=== PATIENT | female | born 1970 | race Caucasian/White ===

== ENCOUNTER 2021-07-24 13:59 | Outpatient (RCR) | payer MEDICAID, SELFPAY ==
--- NOTE | 2021-07-24 15:34 | HMH.SLVOIC ---
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 Recommendations Pt will be seen # times/week 2 for # weeks 8 Plan Anticipate reaching STG in # weeks 6 Anticipate reaching LTG in # weeks 8 Pt/Guardian verbally ack understanding Yes: Son verbalized of dx/prognosis/goals understanding G -code Required No Short Term Goals Sustain phonation of 'ah' at comf. pitch 5 8/10 trials # secs Miscellaneous Will use a communication board for functional language use with 50% accurac [employer] Goals Improve overall quality to increase/ Yes improve communication with family/ friends. 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 Oral-Motor Structure/Function Structure/Function Yes: Buccal Labial Lingual Mandibular Velar Facial Symmetry Symmetrical Dentition Edentulous Oral Agility: Diadochokinetic Rates P 2 T 2 K 2 PTK 1 Speech Intelligibility Phoneme Severe Word Severe Sentence Severe Conversation Severe Other Notes Comment Ms. Slade, a 51 year old female, was referred for speech therapy for dysarthria and dysphagia. Ms. Slade did exhibit severe dysarthric patterns that impact her
== END 2021-07-24 14:00 | disposition home or self-care (01) ==
LOC: ST 13:59
DX: G10 Huntington's disease (principal); R13.10 Dysphagia, unspecified
CPT/HCPCS: 92524

== ENCOUNTER → 2021-08-02 13:22 | Outpatient (CLI) | payer MEDICAID, SELFPAY ==
--- NOTE | 2021-08-02 13:25 | FL_ITS ---
PROCEDURE: FL BARIUM SWALLOW MODIFIED CLINICAL INDICATION: DYSPHAGIA COMPARISON: No exams were available for comparison TECHNIQUE: Patient administered varying consistencies of barium contrast, while viewed in lateral position under real-time fluoroscopy with cine recording. FLUOROSCOPY TIME:3.3 minutes The study was performed in conjunction with speech pathologist. Please see that report & recommendations. FINDINGS: Patient was given varying consistencies of barium. Difficulty with mastication and initiation of swallowing reflex. Premature spillage was noted into the vallecula a. silent aspiration with thins via straw an open cup with residual. There was aspiration with nectar consistency as well.. Fluoroscopy time: 3.3 minutes IMPRESSION: Abnormal modified barium swallow with aspiration Please see speech pathologist report and recommendations. Dictated by: Jadiel Luis MD 08/06/2021 07:14 Jadiel Luis MD in [facility] 08/06/2021 07:14
--- NOTE | 2021-08-02 14:55 | HMH.SLMBS2 ---
Speech & Language Evaluation Speech/Language Mod Barium Swallow Start: 08/02/21 14:00 Freq: once Status: Complete Protocol: Document 08/02/21 14:00 CARMELA (Rec: 08/02/21 14:54 CARMELA [id number]) General Information General Current Food Consistancy Pureed,Thin Liquids Dentition Edentulous Oxygen Status Room Air Facial Symmetry Symmetrical Patient Orientation Person Ability to Follow Directions Fair Communication Ability Severe Impairment MBS Recommendations Diet Dietary Recommendations Pureed,[place] Liquids Treatment/Strategies Strategy/Precaution Recommend Double Swallow,Liquids from Straw,Liquids from Spoon,Small Bites and Sips,Alternate Liquids/Solids Mod Barium Swallow Impressions Summary and Impressions Oral Phase Impression Mild Impairment Oral Phase Summary 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 She was given the following consistencies: thins via spoon , straw, and open cup, nectar via spoon, straw, and open cup , pudding, and pureed. Ms. Slade exhibited premature spillage into laryngeal vestibule with thins. Ms. Slade is currently on pureed diet and will remain on this diet due to difficulty with mastication and pharyngeal impairment. Pharyngeal Phase Impression Moderate Impairment Pharyngeal Phase Summary Ms. Slade exhibited silent aspiration with thins via straw and open cup. She exhibited moderate vallecular residue with pudding and pureed consistency. She was advised to take a nectar wash and residue was 90% cleared with wash with multiple cues. At this time, it is recommended she be placed on pureed diet with nectar thick liquids. Speech/Language MBS Assessment/Goals/Plan Assessment Date of Evaluation: 08/02/21 Evaluation Type Initial Certification Assessment/Problems Dysphagia Does Patient Qualify for Service Yes Qualify/F
== END ==
PROVIDERS: PCP Psychiatry & Neurology Neurology; Visit Provider Psychiatry & Neurology Neurology
DX: R13.10 Dysphagia, unspecified (principal)
CPT/HCPCS: 70371; 92611

== ENCOUNTER 2021-08-02 14:00 | Outpatient (RCR) | payer MEDICAID, SELFPAY | END 2021-08-02 14:05 | disposition home or self-care (01) | LOC: PT 14:00 | DX: G10 Huntington's disease (principal); R29.6 Repeated falls | CPT/HCPCS: 97110; 97116; 97163 ==

== ENCOUNTER 2022-05-24 10:10 | Emergency (ER) | payer MEDICAID, SELFPAY ==
[2022-05-24 10:10] VITALS: BP 116/87; PULSE 79; RESP 18; TEMP 36.8; O2SAT 98; BMI 17.7
--- NOTE | 2022-05-24 10:15 | PC.NURSE ---
seizure pads placed on bharath bed rails for safety r/t pt has hx of hungtingtons disease.
--- NOTE | 2022-05-24 10:30 | XR_ITS ---
FINAL REPORT CLINICAL HISTORY: Fall FINDINGS: 2 views of the right hip were obtained. There is no acute fracture or dislocation. The joint spaces are intact. There are no soft tissue abnormalities. IMPRESSION: No acute process. Reviewed, Interpreted and Dictated by Magan Macias III, MD Transcribed by Dany Villa Authenticated and . [facility]
--- NOTE | 2022-05-24 10:39 | PC.NURSE ---
Pt has Hunnington's Disease and is unable to remain still in bed. Staff have made multiple attempts at placing pt back into bed as she climbs out of the bottom of stretcher. Warm blanket was provided for comfort and TV turned on for distraction. Pt continued to come out of bed. Staff placed pt in w/c and sat pt by them near the nurse's station and pt continued to come out of w/c and was unsteady on feet, almost causing w/c to flip backward. Contacted Child Care Supervisor regarding availability of staff to sit with pt. They are sending additional staff down at this time.
--- NOTE | 2022-05-24 10:45 | PC.NURSE ---
Aishwarya Correa sitting at bedside with pt. Pt up in w/c in room.
[2022-05-24 10:49] VITALS: BP 84/61; PULSE 65; O2SAT 99
--- NOTE | 2022-05-24 10:49 | HMH.EDGENADL ---
Discharge Plan Disposition Patient Disposition: Home, Self-Care Condition: Good Chief Complaint: Fall Prescriptions Prescriptions: No Action acetaminophen 500 mg capsule 500 mg PO Q4H PRN ondansetron 4 mg tablet,disintegrating 4 mg PO Q6H Proair Digihaler 90 mcg/actuation aero powdr breath act w/sensor 90 mcg IH Q4H PRN senna 8.6 mg capsule 8.6 mg PO DAILY cetirizine [All Day Allergy (cetirizine)] 10 mg tablet 10 mg PO DAILY PRN citalopram 20 mg tablet 20 mg PO DAILY olanzapine 15 mg tablet 15 mg PO HS tetrabenazine 12.5 mg tablet 25 mg PO TID Activity Restrictions/Add. Instructions Additional Instructions/Restrictions: Tylenol as needed for pain Follow-up with primary care provider if not improving next week Clinical Impressions Clinical Impression: Contusion of hip, right, Fall Discharge ED Provider: Almas Velasco General Adult HPI General Chief complaint: Fall Stated complaint: hip pain from fall Time Seen by Provider: 05/24/22 10:49 Mode of Arrival: EMS Source of Information: EMS and Medical Record Limitations: Hunnington's Disease Description of Symptoms (Recalled from ER Triage Doc. by RN): Facility reports to EMS that pt was ambulating down the [place] with her walker and fell. Pt now c/o rt hip pain. No rotation or shortening noted. Pt moving hip without difficulty. History of Present Illness HPI narrative: Brought in by ambulance from longterm. She has [place]'s disease. She was walking with her walker when she reportedly fell. She only complains of discomfort in her posterior right hip. Denies any other injuries, no other injuries noted by staff. Related Data Home Medications Medication Instructions Recorded Confirmed acetaminophen 500 mg capsule 500 mg PO Q4H PRN 03/28/22 05/02/22 albuterol sulfate 90 mcg/actuation 90 mcg inhalation Q4H PRN 03/28/22 05/02/22 breath activated powder inhaler,sensor (Proair Digihaler) cetirizine 10 mg tablet (All Day 10 mg PO DAILY PRN 03/28/22 03/28/22 Allergy (cetirizine)) citalopram 20 mg tablet 20 mg PO DAILY 03/28/22 05/02/22 olanzapine 15 mg tablet 15 mg PO HS 03/28/22 05/02/22 ondansetron 4 mg disintegrating 4 mg PO Q6H 03/28/22 05/02/22 tablet sennosides 8.6 mg capsule (senna) 8.6 mg PO DAILY 03/28/22 05/02/22 tetrabenazine 12.5 mg tablet 25 mg PO TID 05/02/22 05/02/22 Allergies Allergy/AdvReac Type Severity Reaction Status Date / Time No Known Allergies Allergy Verified 03/28/22 09:50 PFSH PFSH Social History Smoking Status: Never smoker alcohol intake: never current occupational status: disabled Travel in the last 8 weeks: None ROS Obtained: Yes Systems reviewed as appropriate & no additional complaints except as documented Constitutional Constitutional: Denies headache(s) ENT Ears, Nose, Mouth, and Throat: Denies headache(s) and Denies neck pain Musculoskeletal Musculoskeletal: Reports as per HPI, Reports arthralgias (Right hip posteriorly), Denies back pain and Denies neck pain Neurologic Neurologic: Denies headache(s) Physical Exam General General appearance: alert and in no apparent distress Head Head exam: atraumatic and normocephalic Eye Eye exam: Present normal appearance and EOMI Neck Neck exam: Present normal inspection, full ROM and trachea midline; Absent tenderness Chest Chest inspection: Present normal inspection and symmetric chest wall rise; Absent tenderness Respiratory Respiratory exam: Present normal lung sounds bilaterally; Absent respiratory distress or wheezes Cardiovascular Cardiovascular exam: Present regular rate and normal rhythm Abdominal Exam Abdominal exam: Present soft; Absent distention, tenderness or guarding Extremities Exam Extremities exam: Present normal inspection and other (No shortening or malrotation of the lower extremities. Full range of motion of lower extremities with no signs of pain. No ecchymosis or e
--- NOTE | 2022-05-24 11:01 | PC.NURSE ---
Spoke with Román in rad and notified him that we needed a pelvis view as well along with the rt hip xray that was performed.
--- NOTE | 2022-05-24 11:04 | PC.NURSE ---
Pt returning to rad at this time.
--- NOTE | 2022-05-24 11:04 | PC.NURSE ---
pt taken to Xray
--- NOTE | 2022-05-24 11:11 | PC.NURSE ---
Pt back from Xray
--- NOTE | 2022-05-24 11:36 | PC.NURSE ---
Called [facility] for transport of patient back to facility
--- NOTE | 2022-05-24 11:44 | PC.NURSE ---
Called report to Pushpa at [facility].
[2022-05-24 11:56] VITALS: BP 112/79; PULSE 77; RESP 16; TEMP 36.7; O2SAT 99
== END 2022-05-24 11:56 | disposition home or self-care (01) ==
PROVIDERS: Emergency Provider Emergency Medicine; PCP Emergency Medicine
DX: S70.01XA Contusion of right hip, initial encounter (principal); Z79.1 Long term (current) use of non-steroidal anti-inflammatories (NSAID); Z79.51 Long term (current) use of inhaled steroids; W19.XXXA Unspecified fall, initial encounter
CPT/HCPCS: 73502; 99283

== ENCOUNTER 2022-08-14 19:23 | Emergency (ER) | payer MEDICAID, SELFPAY ==
[2022-08-14 19:23] VITALS: BP 118/51; PULSE 86; RESP 16; TEMP 37.2; O2SAT 96; BMI 17.7
--- NOTE | 2022-08-14 19:51 | CT_ITS ---
PROCEDURE INFORMATION: Exam: CT Thoracic Spine Without Contrast Exam date and time: 08/14/2022 8:10 PM Age: 52 years old Clinical indication: Injury or trauma; Fall TECHNIQUE: Imaging protocol: Computed tomography of the thoracic spine without contrast. Radiation optimization: All CT scans at this facility use at least one of these dose optimization techniques: automated exposure control; mA and/or kV adjustment per patient size (includes targeted exams where dose is matched to clinical indication); or iterative reconstruction. COMPARISON: CT CERVICAL SPINE WO CON 08/14/2022 8:07 PM FINDINGS: Bones/joints: The thoracic spine demonstrates mild degenerative changes at multiple levels. Question sternal fracture. Further evaluation is recommended. Soft tissues: Unremarkable. Pleural spaces: Left pleural effusion. IMPRESSION: 1. The thoracic spine demonstrates mild degenerative changes at multiple levels. 2. Question sternal fracture. Further evaluation is recommended. 3. Left pleural effusion.
--- NOTE | 2022-08-14 19:51 | XR_ITS ---
PROCEDURE INFORMATION: Exam: XR Pelvis Exam date and time: 08/14/2022 8:28 PM Age: 52 years old Clinical indication: Injury or trauma; Fall; Blunt trauma (contusions or hematomas); Does not apply; Pelvic region TECHNIQUE: Imaging protocol: Radiologic exam of the pelvis. Views: 1 or 2 view. COMPARISON: CR XR HIP RT 2-3V W/PELVIS 05/24/2022 10:34 AM FINDINGS: Bones/joints: There is no evidence of acute fracture. There is no evidence of joint malalignment or dislocation. Soft tissues: No focal soft tissue swelling. IMPRESSION: 1. No evidence of acute fracture. 2. No evidence of acute dislocation.
--- NOTE | 2022-08-14 19:51 | CT_ITS ---
PROCEDURE INFORMATION: Exam: CT Cervical Spine Without Contrast Exam date and time: 08/14/2022 8:07 PM Age: 52 years old Clinical indication: Injury or trauma; Fall TECHNIQUE: Imaging protocol: Computed tomography of the cervical spine without contrast. Radiation optimization: All CT scans at this facility use at least one of these dose optimization techniques: automated exposure control; mA and/or kV adjustment per patient size (includes targeted exams where dose is matched to clinical indication); or iterative reconstruction. COMPARISON: RF FL BARIUM SWALLOW MODIFIED 08/02/2021 1:31 PM FINDINGS: Limitations: Patient motion artifact severely degrades images, limiting sensitivity of exam. Bones/joints: No evidence of acute fracture or malalignment. Lungs: No acute abnormality or suspicious mass lesion in the visualized lung apices. Soft tissues: Unremarkable. IMPRESSION: No evidence of acute osseous abnormality in the cervical spine within the limits of this exam.
--- NOTE | 2022-08-14 19:51 | XR_ITS ---
PROCEDURE INFORMATION: Exam: XR Chest Exam date and time: 08/14/2022 8:28 PM Age: 52 years old Clinical indication: Injury or trauma; Fall; Blunt trauma (contusions or hematomas) TECHNIQUE: Imaging protocol: Radiologic exam of the chest. Views: 4 or more views. COMPARISON: CT THORACIC SPINE WO CON 08/14/2022 8:10 PM FINDINGS: Lungs: Unremarkable. No consolidation. Pleural spaces: Unremarkable. No pleural effusion. No pneumothorax. Heart/Mediastinum: Unremarkable. No cardiomegaly. Bones/joints: Unremarkable. IMPRESSION: No acute findings.
--- NOTE | 2022-08-14 19:51 | CT_ITS ---
PROCEDURE INFORMATION: Exam: CT Head Without Contrast Exam date and time: 08/14/2022 8:07 PM Age: 52 years old Clinical indication: Injury or trauma; Fall TECHNIQUE: Imaging protocol: Computed tomography of the head without contrast. Radiation optimization: All CT scans at this facility use at least one of these dose optimization techniques: automated exposure control; mA and/or kV adjustment per patient size (includes targeted exams where dose is matched to clinical indication); or iterative reconstruction. COMPARISON: RF FL BARIUM SWALLOW MODIFIED 08/02/2021 1:31 PM FINDINGS: Brain: Global cerebral volume loss. No acute intracranial hemorrhage. No intra- or extra-axial fluid collection. No mass effect or midline shift. Periventricular and subcortical white matter hypodensities compatible with chronic hypertensive microvascular disease. Cerebral ventricles: No hydrocephalus. Paranasal sinuses: No air fluid levels in the visualized paranasal sinuses. Mastoid air cells: Visualized mastoid air cells are well aerated. Bones/joints: No acute calvarial or skull base fracture. Soft tissues: Unremarkable. IMPRESSION: 1. No evidence of acute intracranial abnormality. 2. White matter changes compatible with chronic hypertensive microvascular disease. 3. Global cerebral volume loss.
--- NOTE | 2022-08-14 19:51 | CT_ITS ---
PROCEDURE INFORMATION: Exam: CT Lumbar Spine Without Contrast Exam date and time: 08/14/2022 8:12 PM Age: 52 years old Clinical indication: Injury or trauma; Fall TECHNIQUE: Imaging protocol: Computed tomography of the lumbar spine without contrast. Radiation optimization: All CT scans at this facility use at least one of these dose optimization techniques: automated exposure control; mA and/or kV adjustment per patient size (includes targeted exams where dose is matched to clinical indication); or iterative reconstruction. COMPARISON: CT THORACIC SPINE WO CON 08/14/2022 8:10 PM FINDINGS: Bones/joints: The lumbar spine demonstrates mild degenerative changes at multiple levels. There is no evidence of acute fracture. Soft tissues: Unremarkable. IMPRESSION: 1. The lumbar spine demonstrates mild degenerative changes at multiple levels. 2. No evidence of acute fracture.
--- NOTE | 2022-08-14 20:31 | HMH.EDFALL ---
Discharge Plan Disposition Patient Disposition: er SNF Chief Complaint: Fall Prescriptions Prescriptions: No Action acetaminophen 500 mg capsule 500 mg PO Q4H PRN ondansetron 4 mg tablet,disintegrating 4 mg PO Q6H Proair Digihaler 90 mcg/actuation aero powdr breath act w/sensor 90 mcg IH Q4H PRN senna 8.6 mg capsule 8.6 mg PO DAILY cetirizine [All Day Allergy (cetirizine)] 10 mg tablet 10 mg PO DAILY PRN citalopram 20 mg tablet 20 mg PO DAILY olanzapine 15 mg tablet 15 mg PO HS tetrabenazine 12.5 mg tablet 25 mg PO TID Referrals Follow up/Referrals: Provider,Referral, MD [Primary Care Provider] - See instructions Clinical Impressions Clinical Impression: Fall, Lumbar back sprain, Contusion of head Instructions Patient Instructions: How to Prevent Falls Discharge ED Provider: Francois Allen Fall HPI General Chief Complaint: Fall Stated Complaint: Fall Time Seen by Provider: 08/14/22 20:31 Mode of Arrival: EMS Source of Information: Patient, EMS and Medical Record Limitations: Physical Limitations Description of Symptoms (Recalled from ER Triage Doc. by RN): pt from [facility] today from what the pt stated was a fall from standing the pt reports that her butt hurts real bad and back and head jail staff stated that she was an unwitnessed fall the pt has a hx of huntingtons disease and uncontrolled muscle movements. History of Present Illness HPI Narrative: fall at [facility] with back and head injury complaint: fall Onset (ago): hour(s) Fall from: standing Fall witnessed: no Place fall occurred: jail[facility]SNF Loss of consciousness: none Prolonged down time: no Context: history of frequent falls Location of injury: head, neck and back Severity: moderate Related Data Home Medications Medication Instructions Recorded Confirmed acetaminophen 500 mg capsule 500 mg PO Q4H PRN 03/28/22 08/13/22 albuterol sulfate 90 mcg/actuation 90 mcg inhalation Q4H PRN 03/28/22 08/13/22 breath activated powder inhaler,sensor (Proair Digihaler) cetirizine 10 mg tablet (All Day 10 mg PO DAILY PRN 03/28/22 08/13/22 Allergy (cetirizine)) citalopram 20 mg tablet 20 mg PO DAILY 03/28/22 08/13/22 olanzapine 15 mg tablet 15 mg PO HS 03/28/22 08/13/22 ondansetron 4 mg disintegrating 4 mg PO Q6H 03/28/22 08/13/22 tablet sennosides 8.6 mg capsule (senna) 8.6 mg PO DAILY 03/28/22 08/13/22 tetrabenazine 12.5 mg tablet 25 mg PO TID 05/02/22 08/13/22 Allergies Allergy/AdvReac Type Severity Reaction Status Date / Time No Known Allergies Allergy Verified 08/13/22 11:17 [facility] Social History Smoking Status: Current every day smoker alcohol intake: never current occupational status: disabled Travel in the last 8 weeks: None ROS Obtained: Yes unobtainable due to mental status Physical Exam General General appearance: alert and in no apparent distress Head Head exam: atraumatic Eye Eye exam: Present PERRL and EOMI ENT ENT exam: Present mucous membranes moist Neck Neck exam: Present trachea midline Chest Chest inspection: Absent tenderness Respiratory Respiratory exam: Present other (dec bs bilat ) Cardiovascular Cardiovascular exam: Present regular rate Abdominal Exam Abdominal exam: Present soft Extremities Exam Extremities exam: Absent tenderness Back Exam Back exam: Present normal inspection Neurological Exam Neurological exam: Present alert, oriented X3 and CN II-XII intact Psychiatric Psychiatric exam: Present normal affect Skin Skin exam: Absent rash Medical Decision Making Medical Records Medical records reviewed: Yes I reviewed the patient's medical records. Felix Inquiry Pt receiving controlled substance: No Vital Signs: 08/14/22 19:23 Temperature 98.9 F Temperature Source Oral Pulse Rate [Right] 86 Respiratory Rate 16 Blood Pressure [Right Arm] 118/51 L Blood Pressure Mean [Right Arm]
--- NOTE | 2022-08-14 21:00 | CT_ITS ---
PROCEDURE INFORMATION: Exam: CT Chest Without Contrast; Diagnostic Exam date and time: 08/14/2022 9:09 PM Age: 52 years old Clinical indication: Injury or trauma; Fall; Blunt trauma (contusions or hematomas) TECHNIQUE: Imaging protocol: Diagnostic computed tomography of the chest without contrast. 3D rendering (Not supervised by radiologist): MIP and/or 3D reconstructed images were created by the technologist. Radiation optimization: All CT scans at this facility use at least one of these dose optimization techniques: automated exposure control; mA and/or kV adjustment per patient size (includes targeted exams where dose is matched to clinical indication); or iterative reconstruction. COMPARISON: CR XR CHEST AP 08/14/2022 8:28 PM FINDINGS: Lungs: Patchy ill-defined centrilobular ground-glass opacities in the left lung consistent with infectious or inflammatory process. No focal airspace consolidation. Pleural spaces: Pleural thickening along the posterior left hemithorax, nonspecific. Heart: No cardiomegaly. No significant pericardial effusion. Calcific coronary artery disease. Mediastinal space: Layering fluid in the esophagus to the level of the thoracic inlet, posing increased risk for aspiration. Lymph nodes: Unremarkable. Vasculature: Aorta is normal in caliber. Diaphragm: Small hiatal hernia. Bones/joints: No evidence of acute osseous abnormality. No evidence of sternal fracture. No acute rib fractures. Soft tissues: Unremarkable. IMPRESSION: 1. No evidence of acute intra-thoracic traumatic injury. 2. Patchy ill-defined centrilobular ground-glass opacities in the left lung consistent with infectious or inflammatory process. No focal airspace consolidation. 3. Pleural thickening along the posterior left hemithorax, nonspecific. No evidence of pleural effusion or rib fracture. 4. Layering fluid in the esophagus to the level of the thoracic inlet, posing increased risk for aspiration. 5. Small hiatal hernia. 6. Calcific coronary artery disease.
--- NOTE | 2022-08-14 21:11 | CT_ITS ---
PROCEDURE INFORMATION: Exam: CT Abdomen And Pelvis Without Contrast Exam date and time: 08/14/2022 9:12 PM Age: 52 years old Clinical indication: Abdominal pain; Additional info: Abnormal abd TECHNIQUE: Imaging protocol: Computed tomography of the abdomen and pelvis without contrast. Radiation optimization: All CT scans at this facility use at least one of these dose optimization techniques: automated exposure control; mA and/or kV adjustment per patient size (includes targeted exams where dose is matched to clinical indication); or iterative reconstruction. COMPARISON: CR XR PELVIS 1-2V 08/14/2022 8:28 PM FINDINGS: Limitations: Lack of intravenous contrast material limits sensitivity in evaluation for acute intra-abdominal pathology. Respiratory motion artifact and photon starvation artifact related to patient's arm positioning severely degrades images, limiting sensitivity of exam. Liver: Paul configuration of right hepatic lobe, normal variant. No evidence of liver laceration. Gallbladder and bile ducts: Unremarkable. Pancreas: Unremarkable. Spleen: Unremarkable. Adrenal glands: Unremarkable. Kidneys and ureters: Punctate (2-3 mm) non-obstructing stones in the bilateral kidneys. No hydronephrosis. No evidence of perinephric hematoma. Stomach and bowel: Moderate colonic stool burden suggestive of constipation. Appendix: No evidence of appendicitis. Intraperitoneal space: No free fluid. No pneumoperitoneum. Vasculature: Unremarkable. Lymph nodes: Unremarkable. Urinary bladder: Unremarkable. Reproductive: Unremarkable. Bones/joints: No acute osseous abnormality. Soft tissues: Unremarkable. IMPRESSION: 1. No acute findings in the abdomen or pelvis. 2. Bilateral punctate (2-3 mm) non-obstructing renal stones. 3. Moderate colonic stool burden suggestive of constipation. No evidence of small bowel obstruction. 4. Concurrent chest CT reported separately.
[2022-08-14 21:58] VITALS: BP 124/78; PULSE 75; RESP 17; TEMP 36.8; O2SAT 98
== END 2022-08-14 22:27 ==
PROVIDERS: Emergency Provider Emergency Medicine
DX: S00.93XA Contusion of unspecified part of head, initial encounter (principal); S33.5XXA Sprain of ligaments of lumbar spine, initial encounter; S39.82XA Other specified injuries of lower back, initial encounter; W18.30XA Fall on same level, unspecified, initial encounter; Y92.129 Unspecified place in nursing home as the place of occurrence of the external cause; Z79.899 Other long term (current) drug therapy; Z72.0 Tobacco use
CPT/HCPCS: 70450; 71045; 71250; 72125; 72128; 72131; 72170; 74176; 99285

== ENCOUNTER 2022-08-18 14:28 | Emergency (ER) | payer MEDICAID, SELFPAY ==
[2022-08-18 14:28] VITALS: BP 105/55; PULSE 86; RESP 18; TEMP 36.5; O2SAT 95; BMI 20.3
[2022-08-18 14:33] VITALS: BMI 20.3
--- NOTE | 2022-08-18 14:37 | PC.NURSE ---
notified ER of pt presenting s/s
--- NOTE | 2022-08-18 15:51 | XR_ITS ---
PROCEDURE INFORMATION: Exam: XR Thoracic Spine Exam date and time: 08/18/2022 3:54 PM Age: 52 years old Clinical indication: Injury or trauma; Fall; Blunt trauma (contusions or hematomas); Injury details: PT has huntingtons disease -- involuntary movement- can not do swimmers unable to hold position TECHNIQUE: Imaging protocol: Radiologic exam of the thoracic spine. Views: 3 views. COMPARISON: CT THORACIC SPINE WO CON 08/14/2022 8:10 PM FINDINGS: Bones/joints: Cervicothoracic junction is obscured by structure overlap. There is preservation of vertebral alignment and vertebral body heights. No visible fracture Soft tissues: Unremarkable. IMPRESSION: No acute fracture. No traumatic subluxation.
--- NOTE | 2022-08-18 15:51 | XR_ITS ---
PROCEDURE INFORMATION: Exam: XR Lumbosacral Spine Exam date and time: 08/18/2022 3:54 PM Age: 52 years old Clinical indication: Injury or trauma; Fall; Blunt trauma (contusions or hematomas); Injury details: PT has huntingtons disease TECHNIQUE: Imaging protocol: Radiologic exam of the lumbosacral spine. Views: 2 or 3 views. COMPARISON: CT LUMBAR SPINE WO CON 08/14/2022 8:12 PM FINDINGS: Bones/joints: Normal. No acute fracture. Normal alignment. Soft tissues: Unremarkable. IMPRESSION: No acute findings.
--- NOTE | 2022-08-18 15:52 | HMH.EDGENADL ---
Discharge Plan Prescriptions Prescriptions: No Action acetaminophen 500 mg capsule 500 mg PO Q4H PRN ondansetron 4 mg tablet,disintegrating 4 mg PO Q6H Proair Digihaler 90 mcg/actuation aero powdr breath act w/sensor 90 mcg IH Q4H PRN senna 8.6 mg capsule 8.6 mg PO DAILY cetirizine [All Day Allergy (cetirizine)] 10 mg tablet 10 mg PO DAILY PRN citalopram 20 mg tablet 20 mg PO DAILY olanzapine 15 mg tablet 15 mg PO HS tetrabenazine 12.5 mg tablet 25 mg PO TID Referrals Follow up/Referrals: Provider,Referral, MD [Primary Care Provider] - See instructions Discharge ED Provider: Waldemar Brush General Adult HPI General Stated complaint: fall Time Seen by Provider: 08/18/22 15:48 History of Present Illness HPI narrative: Patient presents complaining of low back pain following an unwitnessed fall that occurred apparently earlier sometime today. H&P is limited due to the patient being a poor historian. Symptoms appear to be mild to moderate and without apparent exacerbating or alleviating factors. Related Data Home Medications Medication Instructions Recorded Confirmed acetaminophen 500 mg capsule 500 mg PO Q4H PRN 03/28/22 08/13/22 albuterol sulfate 90 mcg/actuation 90 mcg inhalation Q4H PRN 03/28/22 08/13/22 breath activated powder inhaler,sensor (Proair Digihaler) cetirizine 10 mg tablet (All Day 10 mg PO DAILY PRN 03/28/22 08/13/22 Allergy (cetirizine)) citalopram 20 mg tablet 20 mg PO DAILY 03/28/22 08/13/22 olanzapine 15 mg tablet 15 mg PO HS 03/28/22 08/13/22 ondansetron 4 mg disintegrating 4 mg PO Q6H 03/28/22 08/13/22 tablet sennosides 8.6 mg capsule (senna) 8.6 mg PO DAILY 03/28/22 08/13/22 tetrabenazine 12.5 mg tablet 25 mg PO TID 05/02/22 08/13/22 Allergies Allergy/AdvReac Type Severity Reaction Status Date / Time No Known Allergies Allergy Verified 08/13/22 11:17 PFSH PFSH Social History Smoking Status: Current every day smoker alcohol intake: never current occupational status: disabled Travel in the last 8 weeks: None ROS Obtained: Yes All systems reviewed & no additional complaints except as documented Physical Exam General General appearance: alert and in no apparent distress Head Head exam: atraumatic, normocephalic and normal inspection Eye Eye exam: Present normal appearance, PERRL and EOMI ENT ENT exam: Present normal exam, normal oropharynx, mucous membranes moist, TM's normal bilaterally and normal external ear exam Neck Neck exam: Present normal inspection, full ROM and trachea midline; Absent meningismus or lymphadenopathy Chest Chest inspection: Present normal inspection and symmetric chest wall rise; Absent tenderness Respiratory Respiratory exam: Present normal lung sounds bilaterally; Absent respiratory distress Cardiovascular Cardiovascular exam: Present regular rate and normal rhythm; Absent JVD Abdominal Exam Abdominal exam: Present soft and normal bowel sounds; Absent distention, tenderness or guarding Extremities Exam Extremities exam: Present normal inspection, full ROM and normal capillary refill; Absent calf tenderness Back Exam Back exam: Present other (My direct examination of the patient there is no midline spinous process tenderness per nursing report there is no discoloration to the back.) Neurological Exam Neurological exam: Present alert and oriented X3 Psychiatric Psychiatric exam: Present normal affect and normal mood Skin Skin exam: Present warm, dry, intact and normal color Lymphatic Lymphatic Findings: no adenopathy Medical Decision Making Medical Records Medical records reviewed: Yes I reviewed the patient's medical records. Felix Inquiry Pt receiving controlled substance: No Orders (Tests/Meds): ORDERS Category Date Time Status Lumbar spine XR 2-3 views [XR lumbar spine 2-3V] Stat Exams 08/18/22 15:51 Ordered Thoracic spin
[2022-08-18 19:30] VITALS: BP 132/67; PULSE 67; RESP 18; O2SAT 96
--- NOTE | 2022-08-18 20:07 | PC.NURSE ---
pt awaiting ambulance availability to transport pt back to [facility]
--- NOTE | 2022-08-18 20:30 | PC.NURSE ---
report called to wade romero at [facility]
[2022-08-18 20:32] VITALS: BP 132/67; PULSE 68; RESP 18; TEMP 36.5; O2SAT 96
== END 2022-08-18 20:34 | disposition home or self-care (01) ==
PROVIDERS: Emergency Provider Emergency Medicine
DX: M54.50 Low back pain, unspecified (principal); F17.200 Nicotine dependence, unspecified, uncomplicated; Z79.1 Long term (current) use of non-steroidal anti-inflammatories (NSAID); Z79.51 Long term (current) use of inhaled steroids; Z79.899 Other long term (current) drug therapy; W17.89XA Other fall from one level to another, initial encounter
CPT/HCPCS: 72072; 72100; 96372; 99284

== ENCOUNTER → 2022-11-14 10:33 | Outpatient (CLI) | payer MEDICAID, SELFPAY ==
--- NOTE | 2022-11-14 10:39 | FL_ITS ---
FINAL REPORT CLINICAL HISTORY: dysphagia ft: 4:36 FINDINGS: MODIFIED BARIUM SWALLOW History: Dysphagia FINDINGS: Fluoroscopy was provided for the speech pathologist to evaluate the swallowing mechanism. The patient was given several different consistencies of barium while the swallow was visualized fluoroscopically. The report of the speech pathologist should be consulted prior to making dietary decisions. FLUOROSCOPY TIME:4.36minutes IMPRESSION: Modified barium swallow under fluoroscopic guidance. Please see the report of the speech pathologist for Dietary recommendations. Reviewed, Interpreted and Dictated by Magan Macias III, MD Transcribed by CORI Ley Authenticated and [facility]
--- NOTE | 2022-11-14 14:59 | HMH.SLMBS2 ---
Speech & Language Evaluation Speech/Language Mod Barium Swallow Start: 11/14/22 14:29 Freq: once Status: Complete Protocol: Document 11/14/22 14:29 GEN (Rec: 11/14/22 14:59 GEN [id number]) General Information General Current Food Consistancy Pureed,Honey Liquids Dentition Edentulous Oxygen Status Room Air Facial Symmetry Patient Baseline Ability to Follow Directions Good Communication Ability Severe Impairment MBS Recommendations Diet Dietary Recommendations Pureed,Thin Liquids Treatment/Strategies Strategy/Precaution Recommend Sitting Upright (90 deg), Double Swallow,Small Bites and Sips,Alternate Liquids/Solids Mod Barium Swallow Impressions Summary and Impressions Oral Phase Impression Moderate Impairment Oral Phase Summary Moderate oral dysphagia noted. Incoordination and mistiming noted with mastication and oral manipulation. Increased AP transit time with puree, pudding, and mechanical soft. Premature spillage noted 2' lack of back of tongue control . Pt also had prolonged and inadequate mastication with mechanical soft solid, resulting in large unmasticated piece in the pharynx. Regular solid not trialed 2' difficulty masticating soft solids. Pharyngeal Phase Impression Moderate Impairment Pharyngeal Phase Summary Moderate pharyngeal dysphagia noted. Initially, no aspiration was present, however, over the course of the study pt began to fatigue. Aspiration present with both nectar thick liquids and honey thick liquids secondary to mistiming, incoordination, and fatigue. Pt was not sensate to aspiration, and could not clear aspirated material with a cues cough. Deep penetration noted with thin liquids, however, pt did not aspirate thins and was able to clear penetrated material from the laryngeal vestibule upon
== END ==
PROVIDERS: PCP Emergency Medicine; Visit Provider Emergency Medicine
DX: R13.10 Dysphagia, unspecified (principal)
CPT/HCPCS: 70371; 92611

== ENCOUNTER 2023-01-24 01:47 | Emergency (ER) | payer MEDICAID, SELFPAY ==
[2023-01-24 01:48] VITALS: BP 103/69; PULSE 63; RESP 18; TEMP 36.6; O2SAT 92; BMI 15.6
--- NOTE | 2023-01-24 01:49 | XR_ITS ---
PROCEDURE INFORMATION: Exam: XR Chest Exam date and time: 01/24/2023 2:08 AM Age: 52 years old Clinical indication: Shortness of breath; Additional info: SOA TECHNIQUE: Imaging protocol: Radiologic exam of the chest. Views: 1 view. COMPARISON: CT CHEST WO CON 08/14/2022 9:09 PM FINDINGS: Lungs: Unremarkable. No definite consolidation. Pleural spaces: Unremarkable. No pleural effusion. No pneumothorax. Heart/Mediastinum: Unremarkable. No cardiomegaly. Bones/joints: Unremarkable. IMPRESSION: No acute findings. Somewhat limited due to patient rotation.
--- NOTE | 2023-01-24 02:05 | HMH.EDGENADL ---
Discharge Plan Disposition Patient Disposition: Home, Self-Care Condition: Good Prescriptions Prescriptions: No Action Gaviscon 95-358 mg/15 mL suspension 30 ml PO QPCHS famotidine 20 mg tablet 20 mg PO DAILY olanzapine [Zyprexa] 20 mg tablet 20 mg PO HS tetrabenazine 25 mg tablet 50 mg PO DAILY acetaminophen 500 mg capsule 500 mg PO Q4H PRN ondansetron 4 mg tablet,disintegrating 4 mg PO Q6H Proair Digihaler 90 mcg/actuation aero powdr breath act w/sensor 90 mcg IH Q4H PRN senna 8.6 mg capsule 8.6 mg PO DAILY cetirizine [All Day Allergy (cetirizine)] 10 mg tablet 10 mg PO DAILY PRN citalopram 20 mg tablet 40 mg PO DAILY amantadine HCl 50 mg/5 mL solution 100 mg PO BID Qty: 473 6RF tetrabenazine 25 mg tablet 25 mg PO BID haloperidol 0.5 mg tablet 0.5 mg PO TID MDD 1.5 mg Qty: 270 3RF lorazepam [Ativan] 0.5 mg tablet 0.5 mg PO TID Qty: 90 5RF Referrals Follow up/Referrals: Francois Allen MD [Primary Care Provider] - See instructions Activity Restrictions/Add. Instructions Additional Instructions/Restrictions: This patient was evaluated in the emergency department today. At this time, her oxygen saturation is normal on room air and she has no increased work of breathing on my exam. Cardiopulmonary exam is normal. Chest x-ray does not demonstrate any acutely concerning abnormalities. Given this, low concern for cardiopulmonary abnormalities at this time. Please follow-up with her primary care provider over the next 3 days. Return to the emergency department for any new or worsening symptoms. Clinical Impressions Clinical Impression: Abnormal breathing Instructions Patient Instructions: DI for Shortness of Breath Discharge ED Provider: Shayna Gutierrez General Adult HPI General Chief complaint: Shortness of Breath/Dyspnea Stated complaint: Dyspnea Time Seen by Provider: 01/24/23 01:50 Mode of Arrival: EMS Source of Information: EMS Limitations: Language Barrier Description of Symptoms (Recalled from ER Triage Doc. by RN): Per EMS, shelter was worried that patient may have aspirated at dinner last night and woke up gasping. EMS states that en route patients oxygenation remained above 90% on room air History of Present Illness HPI narrative: This patient is a 52-year-old female with a history of end-stage Rochelle's disease presenting to the emergency department from shelter for evaluation with concern for low oxygen saturations and increased work of breathing in the shelter. They reported they were concerned that she may have aspirated at dinnertime. No other concerns noted at this time. No fevers, chills, or other issues. Patient does not contribute to history, as she is nonverbal. Related Data Home Medications Medication Instructions Recorded Confirmed acetaminophen 500 mg capsule 500 mg PO Q4H PRN 03/28/22 01/16/23 albuterol sulfate 90 mcg/actuation 90 mcg inhalation Q4H PRN 03/28/22 01/16/23 breath activated powder inhaler,sensor (Proair Digihaler) cetirizine 10 mg tablet (All Day 10 mg PO DAILY PRN 03/28/22 01/16/23 Allergy (cetirizine)) ondansetron 4 mg disintegrating 4 mg PO Q6H 03/28/22 01/16/23 tablet sennosides 8.6 mg capsule (senna) 8.6 mg PO DAILY 03/28/22 01/16/23 aluminum hydrox-magnesium carb 95 30 ml PO QPCHS 11/07/22 01/16/23 mg-358 mg/15 mL oral suspension (Gaviscon) famotidine 20 mg tablet 20 mg PO DAILY 11/07/22 01/16/23 olanzapine 20 mg tablet (Zyprexa) 20 mg PO HS 11/07/22 01/16/23 tetrabenazine 25 mg tablet 25 mg PO BID 12/18/22 01/16/23 tetrabenazine 25 mg tablet 50 mg PO DAILY 12/18/22 01/16/23 citalopram 20 mg tablet 40 mg PO DAILY 01/16/23 01/16/23 Previous Rx's Medication Instructions Recorded amantadine HCl 50 mg/5 mL oral 100 mg (10 mL) PO BID Chorea, 12/18/22 solution 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
[2023-01-24 04:03] VITALS: BP 107/87; PULSE 67; RESP 18; TEMP 36.6; O2SAT 94
--- NOTE | 2023-01-24 04:44 | PC.NURSE ---
notified [facility] that pt is ready for transport [facility] to [facility]
== END 2023-01-24 05:01 | disposition home or self-care (01) ==
PROVIDERS: Emergency Provider Emergency Medicine; PCP Emergency Medicine
DX: R06.02 Shortness of breath (principal); G10 Huntington's disease
CPT/HCPCS: 71045; 99283

== ENCOUNTER → 2023-03-28 20:11 | Outpatient (CLI) | payer MEDICAID, SELFPAY ==
[2023-03-28 20:21] LABS: Microscopic, Urine URINE MICROSCOPIC (MICROSCOPIC)
[2023-03-28 20:27] LABS: Basophils % 0.4 % (0.1-2.0); Eosinophils # 0.3 K/mm3 (0.0-0.4); Eosinophils % 3.7 % (0.1-12.0); Hematocrit 39.9 % (37.0-47.0); Hemoglobin 12.5 g/dL (12.2-16.2); Lymphocytes # 1.2 K/mm3 (0.7-4.5); Mean Corpuscular HGB Conc 31.4 g/dL (31.8-35.4); Mean Corpuscular Volume 89.1 fl (81-99); Mean Platelet Volume 7.8 fl (7.4-10.4); Monocytes # 0.8 K/mm3 (0.1-1.0); Monocytes % 10.6 % (1.7-9.3); Neutrophils # 5.4 K/mm3 (1.8-7.8); Neutrophils % 69.3 % (37.0-80.0); Platelet Count 605 K/mm3 (142-424); Red Blood Count 4.47 M/mm3 (4.20-5.40); White Blood Count 7.7 K/mm3 (4.8-10.8)
[2023-03-28 20:45] LABS: Appearance,Urine CLEAR (Clear); Bilirubin,Urine Negative (Negative); Blood, Urine Negative (Negative); Color,Urine YELLOW (Yellow); Glucose,Urine (UA) Negative (Negative); Ketones,Urine Negative (Negative); Leukocyte Esterase,Urine Negative (Negative); Nitrate,Urine Negative (Negative); Protein,Urine Negative (Negative); Specific Gravity, Urine 1.015 (1.005-1.030)
[2023-03-28 20:53] LABS: Alanine Aminotransferase 28 U/L (12-78); Albumin Level 3.7 g/dl (3.5-5.0); Albumin/Globulin Ratio 1.5 (1.1-1.8); Alkaline Phosphatase 150 U/L (38-126); Aspartate Amino Transferase 38 U/L (14-36); Blood Urea Nitrogen 8 mg/dl (7-17); Calcium 8.7 mg/dl (8.4-10.2); Carbon Dioxide 35 mmol/L (22.0-30.0); Chloride 100 mmol/L (98-107); Estimated Glomerular Filt Rate 88 ml/min (>60); GFR (African American) 106 ML/MIN (>60); Globulin 2.5 g/dL (1.3-3.2); Glucose 77 mg/dl (74-100); Sodium 141 mmol/L (136-145); Total Protein,Serum 6.2 g/dl (6.3-8.2)
[2023-03-28 21:05] LABS: Bilirubin,Total 0.1 mg/dl (0.2-1.3)
[2023-03-28 21:26] LABS: Squamous Epithelial Cell,Urine Occasional #/hpf (0-5)
== END ==
PROVIDERS: PCP Emergency Medicine; Visit Provider Emergency Medicine
DX: R45.1 Restlessness and agitation (principal)
CPT/HCPCS: 80053; 81001; 85025; 87086

== ENCOUNTER 2023-10-20 21:57 | Outpatient (CLI) | payer MEDICAID, SELFPAY ==
[2023-10-20 22:11] LABS: Microscopic, Urine URINE MICROSCOPIC (MICROSCOPIC)
[2023-10-20 22:15] LABS: Appearance,Urine CLEAR (Clear); Bilirubin,Urine Negative (Negative); Blood, Urine Negative (Negative); Color,Urine DARK YELLOW (Yellow); Glucose,Urine (UA) Negative (Negative); Ketones,Urine Negative (Negative); Leukocyte Esterase,Urine Negative (Negative); Nitrate,Urine Negative (Negative); Protein,Urine Negative (Negative); Specific Gravity, Urine >= 1.030 (1.005-1.030)
[2023-10-20 23:11] LABS: Bacteria,Urine 2+ /lpf; Mucus,Urine 1+ /lpf
== END 2023-10-20 23:59 ==
LOC: LAB.DROPOF 21:58
PROVIDERS: PCP Internal Medicine; Visit Provider Internal Medicine
DX: R33.9 Retention of urine, unspecified (principal)
CPT/HCPCS: 81001; 87086

== ENCOUNTER 2023-11-04 14:38 | Emergency (ER) | payer MEDICAID, SELFPAY ==
[2023-11-04] MEDS: LORazepam 2MG/ML VIAL 1 MG IV (14:38)
[2023-11-04 14:39] VITALS: BP 136/98; PULSE 88; RESP 16; TEMP 37; O2SAT 92; BMI 16.5
[2023-11-04 14:48] VITALS: BP 144/121; PULSE 75; O2SAT 93
--- NOTE | 2023-11-04 15:00 | PC.NURSE ---
seizure pad placed
--- NOTE | 2023-11-04 15:31 | CT_ITS ---
PROCEDURE INFORMATION: Exam: CT Pelvis With Contrast; Skeletal Exam date and time: 11/04/2023 4:21 PM Age: 53 years old Clinical indication: Other: Swelling on the coccygel region, soft tissue TECHNIQUE: Imaging protocol: Computed tomography of the pelvis with contrast. Exam focused on the skeleton. Radiation optimization: All CT scans at this facility use at least one of these dose optimization techniques: automated exposure control; mA and/or kV adjustment per patient size (includes targeted exams where dose is matched to clinical indication); or iterative reconstruction. Contrast material: ISOVUE; Contrast volume: 75 ml; Contrast route: IV; COMPARISON: CT ABDOMEN PELVIS WO CON 08/14/2022 9:12 PM FINDINGS: Stomach and bowel: Large stool burden of the rectum and colon. Adjacent to the sigmoid colon is a 1.1 cm peripherally calcified body that may represent a fecalith within a diverticulum. Bones/joints: See Soft tissues finding. Soft tissues: Posterior coccyx soft tissues rim enhancing collection measuring 3.8 x 5.6 x 6.1 cm compatible with abscess with surrounding inflammatory changes. There is a fat density mass at the left subcutaneous gluteal region measuring 1.7 x 1.0 x 2.4 cm compatible with lipoma. IMPRESSION: 1. Large stool burden of the rectum and colon. 2. Posterior coccyx soft tissues rim enhancing collection measuring 3.8 x 5.6 x 6.1 cm compatible with abscess with surrounding inflammatory changes.
--- NOTE | 2023-11-04 15:33 | HMH.EDGENADL ---
Discharge Plan Disposition Patient Disposition: Still a Patient Condition: Good Prescriptions Prescriptions: No Action Gaviscon 95-358 mg/15 mL suspension 30 ml PO QPCHS famotidine 20 mg tablet 20 mg PO DAILY olanzapine [Zyprexa] 20 mg tablet 20 mg PO HS amantadine HCl 50 mg/5 mL solution 200 mg PO BID haloperidol 0.5 mg tablet 1.5 mg PO TID MDD 4.5 mg Qty: 270 3RF acetaminophen 500 mg capsule 500 mg PO Q4H PRN Proair Digihaler 90 mcg/actuation aero powdr breath act w/sensor 90 mcg IH Q4H PRN cetirizine [All Day Allergy (cetirizine)] 10 mg tablet 10 mg PO DAILY PRN citalopram 20 mg tablet 40 mg PO DAILY tetrabenazine 25 mg tablet 25 mg PO BID Rx Instructions: noon and bedtime clonazepam [Klonopin] 0.5 mg tablet 1 mg PO TID bisacodyl 10 mg suppository 10 mg [place] .every 3 days PRN ondansetron 4 mg tablet,disintegrating 4 mg PO .before meals Rx Instructions: before meals at 0630,1130,and 1630 sennosides-docusate sodium [Senexon-S] 8.6-50 mg tablet 2 tab-cap PO HS PRN (Reason: constipation) simethicone [Gas Relief 80 (simethicone)] 80 mg tablet,chewable 80 mg PO TID tetrabenazine 25 mg tablet 50 mg PO AM Rx Instructions: give at 9 am multivitamin with minerals Tablet 1 tab PO DAILY nitrofurantoin monohyd/m-cryst [Macrobid] 100 mg capsule 100 mg PO Q12H 7 Days Qty: 14 0RF Rx Instructions: must administer with a meal/food Referrals Follow up/Referrals: Provider,Referral, MD [Primary Care Provider] - See instructions Activity Restrictions/Add. Instructions Additional Instructions/Restrictions: The fluid collection was consistent with an abscess and was successfully drained at the bedside. Please floss the surgical lube daily until there is no longer blood or purulent drainage at which point you can cut it out. Ms. Lane was given dalbavancin through her IV which is noninferior to admitting the patient for a week of IV antibiotics and should adequately treat any surrounding cellulitis that was not treated by abscess drainage. Expect this to improve in 48 to 72 hours if she has high fevers or if it is worsening after that time please have her return to the emergency department. Clinical Impressions Clinical Impression: Abscess of buttock, Cellulitis of sacral region Instructions Patient Instructions: DI for Laceration Repair Discharge ED Provider: Dwight Garcia Adult HPI General Chief complaint: Wound/Laceration Stated complaint: wound Time Seen by Provider: 11/04/23 15:27 Mode of Arrival: EMS Source of Information: EMS and Medical Record Limitations: No Limitations Description of Symptoms (Recalled from ER Triage Doc. by RN): alf reports a fluid filled pocket on her coccyx that is red, swollen and peeling. History of Present Illness HPI narrative: Patient is a 53-year-old female with a history of having disease who comes in from a intermediate with coccygeal swelling and erythema. Concern for possible fluid collection. Patient is unable to provide history and history is therefore limited. Additionally the intermediate states she has not had any urine output in 48 hours. Related Data Home Medications Medication Instructions Recorded Confirmed acetaminophen 500 mg capsule 500 mg PO Q4H PRN 03/28/22 10/06/23 albuterol sulfate 90 mcg/actuation 90 mcg inhalation Q4H PRN 03/28/22 10/06/23 breath activated powder inhaler,sensor (Proair Digihaler) cetirizine 10 mg tablet (All Day 10 mg PO DAILY PRN 03/28/22 10/06/23 Allergy (cetirizine)) aluminum hydrox-magnesium carb 95 30 ml PO QPCHS 11/07/22 10/06/23 mg-358 mg/15 mL oral suspension (Gaviscon) famotidine 20 mg tablet 20 mg PO DAILY 11/07/22 10/06/23 olanzapine 20 mg tablet (Zyprexa) 20 mg PO HS 11/07/22 10/06/23 citalopram 20 mg tablet 40 mg PO DAILY 01/16/23 10/06/23 amantadine HCl 50 mg/5 mL oral 200 mg PO BID Chorea, Montebello's 04/15/23 10/06/23 solution disease tetrabenazine 25 mg tablet 25 mg PO BID 04/15/23 10/06/23 bisacodyl 10 mg rectal suppository 10 mg [place] .every 3 days PRN 08/28/23 10/06/23 multivitamin with minerals 1 tab PO DAILY 08/28/23 10/06/23 ondansetron 4 mg disintegrating 4 mg PO .before meals 08/28/23 10/06/23 tablet sennosides 8.6 mg-docusate sodium 2 tab-cap PO HS PRN constipation 08/28/23 10/06/23 50 mg tablet (Senexon-S) simethicone 80 mg chewable tablet 80 mg PO TID gas 08/28/23 10/06/23 (Gas Relief 80 (simethicone)) tetrabenazine 25 mg tablet 50 mg PO AM 08/28/23 10/06/23 clonazepam 0.5 mg tablet (Klonopin) 1 mg PO TID 09/29/23 10/06/23 Previous Rx's Medication Instructions Recorded haloperidol 0.5 mg tablet 1.5 mg PO TID severe chorea, 04/15/23 agitation #270 tabs nitrofurantoin 100 mg PO Q12H 7 days #14 caps 10/21/23 monohydrate/macrocrystals 100 mg capsule (Macrobid) Allergies Allergy/AdvReac Type Severity Reaction Status Date / Time No Known Allergies Allergy Verified 10/06/23 21:50 PFSCOX [place] Disclaimer: The information contained in this section may have been updated after the patient was seen, as this information can be updated by other users. Medical History Depression Dysphagia Montebello's disease Progressive neurodegenerative disease. 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) Respiratory Respiratory exam: Present normal lung sounds bilaterally Cardiovascular Cardiovascular exam: Present regular rate Bimanual exam: Present other (There is a sacral/coccygeal swelling and erythema that is about 5 x 5 cm) Neurological Exam Neurological exam: Present alert Medical Decision Making Felix Inquiry Pt receiving controlled substance: No Vital Signs: 11/04/23 14:39 11/04/23 14:48 11/04/23 17:01 Temperature 98.6 F Temperature Source Oral Pulse Rate 75 58 L Pulse Rate [Radial] 88 Respiratory Rate 16 Blood Pressure 144/121 H 80/59 L Blood Pressure [Right Arm] 136/98 H Blood Pressure Mean 60 Blood Pressure Mean [Right Arm] 110 Blood Pressure Source Blood Pressure Source [Right Arm] Automatic Cuff Blood Pressure Position Blood Pressure Position [Right Arm] Supine 02 Sat by Pulse Oximetry 92 L 93 L 94 L Oxygen Delivery Method Room Air Room Air Room Air 11/04/23 17:06 11/04/23 17:31 11/04/23 19:32 Temperature 97.8 F Temperature Source Oral Pulse Rate 61 79 73 Pulse Rate [Radial] Respiratory Rate 16 Blood Pressure 95/64 L 74/39 L 109/68 L Blood Pressure [Right Arm] Blood Pressure Mean 68 50 Blood Pressure Mean [Right Arm] Blood Pressure Source Automatic Cuff Blood Pressure Source [Right Arm] Blood Pressure Position Sitting Blood Pressure Position [Right Arm] 02 Sat by Pulse Oximetry 92 L 94 L Oxygen Delivery Method Room Air Room Air Room Air Lab Data Lab results reviewed: Yes I reviewed the patient's lab results. Lab Results 11/04/23 15:42: WBC 9.3, RBC 4.10 L, Hgb 11.7 L, Hct 35.1 L, MCV 85.7, MCH 28.5, MCHC 33.3, RDW 13.8, Plt Count 649 H, MPV 7.6, Neut % (Auto) 84.0 H, Lymph % (Auto) 8.1 L, [place] % (Auto) 5.8, Eos % (Auto) 2.0, Baso % (Auto) 0.1, Neut # (Auto) 7.8, Lymph # (Auto) 0.8, [place] # (Auto) 0.5, Eos # (Auto) 0.2, Baso # (Auto) 0.0, ESR 80 H, Sodium 140, Potassium 3.8, Chloride 103, Carbon Dioxide 34 H, Anion Gap 6.8, BUN 8, Creatinine 0.60, Estimated Creat Clear 79, Estimated GFR 105, Est GFR ( Amer) 127, Glucose 103 H, Calcium 9.0, Total Bilirubin 0.1 L, AST 42 H, ALT 38, Alkaline Phosphatase 93, C-Reactive Protein 60.3 H, Total Protein 6.8, Albumin 3.4 L, Globulin 3.4 H, Albumin/Globulin Ratio 1.0 L 11/04/23 15:42 11/04/23 15:42 Orders (Tests/Meds): ED MEDICATIONS Discontinued Medications Generic Name Dose Route Start Last Admin Trade Name Freq PRN Reason Stop Dose Admin Lactated Ringer's 500 mls @ 999 mls/hr 11/04/23 15:45 11/04/23 15:46 Lactated Ringer's 1000 Ml Bag IV 11/04/23 16:15 999 mls/hr .Q31M MICHELA Administration Dalbavancin 1,500 mg/ Dextrose 250 mls @ 500 mls/hr 11/04/23 16:59 11/04/23 17:54 IV 11/04/23 17:00 500 mls/hr ONCE ONE Administration Iopamidol 75 ml 11/04/23 16:39 11/04/23 16:40 Iopamidol-370 (76%);100ml Bottle IV 11/04/23 16:40 75 ml ONCE ONE Administration Lorazepam 1 mg 11/04/23 14:30 11/04/23 14:38 Lorazepam 2mg/Ml Vial IV 11/04/23 14:31 1 mg ONCE ONE Administration Sodium Chloride 10 ml 11/04/23 16:39 11/04/23 16:40 Sodium Chloride 0.9% 10ml Syr (Rad Only) IV 12/04/23 16:38 10 ml NEEDED PRN Administration Maintain IV Site Sodium Chloride 10 ml 11/04/23 14:30 Sodium Chloride 0.9% 10ml Vial IV 12/04/23 14:29 NEEDED PRN to Dilute Lorazepam inj ORDERS Category Date Time Status CT pelvis w con Stat Cat Scan 11/04/23 15:31 Completed CBC w/Auto Diff [Complete Blood Count Auto Diff] Stat Lab 11/04/23 15:42 Completed CMP [Comprehensive Metabolic Panel] Stat Lab 11/04/23 15:42 Completed CRP [C-Reactive Protein] Stat Lab 11/04/23 15:42 Completed ESR [Erythrocyte Sedimentation Rate] Stat Lab 11/04/23 15:42 Completed Wound Culture and Gram Stain Stat Micro 11/04/23 16:48 Received Medical Decision Narrative: Patient is a chronically ill 53-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 There was an outpatient concern for possible CSF leak and fluid collection. Will get a CT scan of this area with contrast as abscess and cellulitis are on the differential. It is difficult to tell based on her anatomy as she is cachectic and the remainder of the region is very hard and indurated, what the nature of this is and will need further imaging to reassess. Inflammatory markers will be performed as well to further evaluate for possible osteomyelitis etc. Will reassess after this initial workup is complete. Of note the patient had a wet diaper and appears to have significant and normal urine output but will check her renal function as well given the history of concern from the intermediate. The scan performed which I personally interpreted which shows a well circumscribed fluid collection on the outside of the coccyx that is rim-enhancing. Seems to be homogenous from a fluid standpoint. Incision and drainage was performed which successfully drained the fluid collection. Culture was sent. The fluid was somewhat mucopurulent but primarily is serosanguineous in nature. There is some overlying erythema we will treat this as an overlying cellulitis. It is possible this is just a pressure related fluid collection however we will treat this as an abscess and cellulitis. I believe that we can avoid admission by giving dalbavancin which would be administered in the emergency department. We should see an improvement in 24 to 48 hours and she will be sent back to her intermediate with advised to return the emergency department with high fevers or if she is not improving within 2 to 3 days. Reassessment 6:[address] scan consistent with my read. As stated above I&D was successful dalbavancin should cover any remaining cellulitis no indication for admission at the moment return precautions emphasized and discussed in discharge paperwork and discussed with nursing and patient discharged in stable condition no evidence of sepsis. Procedures Abscess I/D Site: other (buttock ) Local Anesthetic: lidocaine 1% and with epi Amount of anesthesia used (mL): 10 Technique: incised with #11 blade Amount of fluid expressed (mL): 20 (purulent/sero sanguinous ) Irrigation: No Packing used?: none (vessel loop ) Critical Care Critical Care Time Critical Care Time: No
[2023-11-04] MEDS: LACTATED RINGERS 1000ML 500 ML 999 ML IV (15:46)
--- NOTE | 2023-11-04 15:51 | PC.NURSE ---
Patient changed and turned. resting in bed.
[2023-11-04 15:54] LABS: Basophils % 0.1 % (0.1-2.0); Eosinophils # 0.2 K/mm3 (0.0-0.4); Hematocrit 35.1 % (37.0-47.0); Hemoglobin 11.7 g/dL (12.2-16.2); Lymphocytes # 0.8 K/mm3 (0.7-4.5); Lymphocytes % 8.1 % (10-50); Mean Corpuscular HGB Conc 33.3 g/dL (31.8-35.4); Mean Corpuscular Hemoglobin 28.5 pg (27.0-31.2); Mean Corpuscular Volume 85.7 fl (81-99); Mean Platelet Volume 7.6 fl (7.4-10.4); Monocytes # 0.5 K/mm3 (0.1-1.0); Monocytes % 5.8 % (1.7-9.3); Neutrophils # 7.8 K/mm3 (1.8-7.8); Platelet Count 649 K/mm3 (142-424); Red Cell Distribution Width 13.8 % (11.5-17.5); White Blood Count 9.3 K/mm3 (4.8-10.8)
[2023-11-04 16:00] LABS: Alanine Aminotransferase 38 U/L (12-78); Albumin Level 3.4 g/dl (3.5-5.0); Alkaline Phosphatase 93 U/L (38-126); Anion Gap 6.8 mEq/L (5-15); Aspartate Amino Transferase 42 U/L (14-36); Blood Urea Nitrogen 8 mg/dl (7-17); Carbon Dioxide 34 mmol/L (22.0-30.0); Chloride 103 mmol/L (98-107); Creatinine Clearance Estimated 79 mL/min (50-200); Estimated Glomerular Filt Rate 105 ml/min (>60); GFR (African American) 127 ML/MIN (>60); Globulin 3.4 g/dL (1.3-3.2); Glucose 103 mg/dl (74-100); Potassium 3.8 mmoL/L (3.5-5.1); Sodium 140 mmol/L (136-145); Total Protein,Serum 6.8 g/dl (6.3-8.2)
[2023-11-04 16:02] LABS: Bilirubin,Total 0.1 mg/dl (0.2-1.3)
[2023-11-04 16:05] LABS: C-Reactive Protein 60.3 mg/L (0-4)
--- NOTE | 2023-11-04 16:06 | PC.NURSE ---
Taken to CT
[2023-11-04 16:40] LABS: Erythrocyte Sedimentation Rate 80 mm/hr (0-30)
[2023-11-04] MEDS: IOPAMIDOL-370 (76%);100ML BOTTLE 75 ML IV (16:40)
[2023-11-04] MEDS: SODIUM CHLORIDE 0.9% 10ML SYR (RAD ONLY) 10 ML IV (16:40)
[2023-11-04 17:01] VITALS: BP 80/59; PULSE 58; O2SAT 94
[2023-11-04 17:06] VITALS: BP 95/64; PULSE 61; O2SAT 92
--- NOTE | 2023-11-04 17:23 | PC.NURSE ---
maryan mixed per instructions, called [facility] pharmacy to verify as well
[2023-11-04 17:31] VITALS: BP 74/39; PULSE 79; O2SAT 94
[2023-11-04] MEDS: DALBAVANCIN HCL 1,500 MG in DEXTROSE 5 % IN WATER 250 ML 500 MG IV (17:54)
--- NOTE | 2023-11-04 18:19 | PC.NURSE ---
PT LAYING IN BED VISIBLE SEEN FROM NURSES STATION
--- NOTE | 2023-11-04 18:56 | PC.NURSE ---
Attempted to call report. No answer.
[2023-11-04 19:32] VITALS: BP 109/68; PULSE 73; RESP 16; TEMP 36.6; O2SAT 98
--- NOTE | 2023-11-07 11:01 | PC.NURSE ---
Wound culture results discussed with , pt given maryan during ER visit. NTD at this time
--- NOTE | 2023-11-11 23:56 | PC.NURSE ---
notified Dr Fernandez of wound culture results. no new orders. pt received dalbavancin infusion
== END 2023-11-04 20:58 | disposition still patient (30) ==
PROVIDERS: Student in an Organized Health Care Education/Training Program; Emergency Provider Emergency Medicine
DX: L02.31 Cutaneous abscess of buttock (principal); B95.61 Methicillin susceptible Staphylococcus aureus infection as the cause of diseases classified elsewhere; L03.818 Cellulitis of other sites; G10 Huntington's disease
CPT/HCPCS: 10061; 72193; 80053; 85025; 85651; 86140; 87070; 87205; 96374; 96375; 99285; J0875; Q9967

== ENCOUNTER 2024-09-25 11:16 | Observation (INO) | payer MEDICAID, SELFPAY ==
[2024-09-25] VITALS (13 sets, daily range): BP systolic 90–123; BP diastolic 56–78; PULSE 38–72; RESP 5–18; TEMP 32.2–36.7; O2SAT 93–100; BMI 12.1; BMI 12.6
--- NOTE | 2024-09-25 11:29 | PC.NURSE ---
Dr. Fernandez spoke with the pts son. The son decided to make her comfort care only and DNR status.
--- NOTE | 2024-09-25 11:30 | PC.NURSE ---
seizure pads placed on bed rails.
--- NOTE | 2024-09-25 11:30 | PC.NURSE ---
nellie diallo placed on pt after rectal temp 90.0.
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
--- NOTE | 2024-09-25 12:34 | PC.NURSE ---
Called dietary for courtesy cart at [phone]
--- NOTE | 2024-09-25 14:37 | PC.NURSE ---
Report called to Jamar YOUSIF.
--- NOTE | 2024-09-25 15:34 | PC.NURSE ---
arrived to floor by stretcher
[2024-09-25 17:19] LABS: VBG PH 7.54 mmol/L (7.31-7.41)
[2024-09-25 17:24] LABS: Basophils % 0.6 % (0.1-2.0); Eosinophils % 0.6 % (0.1-12.0); Hematocrit 35.2 % (37.0-47.0); Hemoglobin 11.9 g/dL (12.2-16.2); Lymphocytes # 0.7 K/mm3 (0.7-4.5); Lymphocytes % 14.1 % (10-50); Mean Corpuscular HGB Conc 33.8 g/dL (31.8-35.4); Mean Corpuscular Hemoglobin 28.2 pg (27.0-31.2); Mean Corpuscular Volume 83.4 fl (81-99); Mean Platelet Volume 9.3 fl (7.4-10.4); Monocytes # 0.2 K/mm3 (0.1-1.0); Monocytes % 4.1 % (1.7-9.3); Neutrophils # 3.9 K/mm3 (1.8-7.8); Neutrophils % 80.4 % (37.0-80.0); Platelet Count 254 K/mm3 (142-424); Red Blood Count 4.22 M/mm3 (4.20-5.40); Red Cell Distribution Width 16.2 % (11.5-17.5); White Blood Count 4.9 K/mm3 (4.8-10.8)
[2024-09-25 17:28] LABS: Albumin Level 3.2 g/dl (3.5-5.0); Chloride 105 mmol/L (98-107); Sodium 139 mmol/L (136-145)
[2024-09-25 17:31] LABS: Alanine Aminotransferase 45 U/L (12-78); Albumin/Globulin Ratio 1.2 (1.1-1.8); Alkaline Phosphatase 100 U/L (38-126); Aspartate Amino Transferase 56 U/L (14-36); Bilirubin,Total 0.2 mg/dl (0.2-1.3); Blood Urea Nitrogen 22 mg/dl (7-17); Carbon Dioxide 29 mmol/L (22.0-30.0); Creatinine Clearance Estimated 40 mL/min (50-200); Estimated Glomerular Filt Rate 65 ml/min (>60); GFR (African American) 79 ML/MIN (>60); Globulin 2.6 g/dL (1.3-3.2); Glucose 124 mg/dl (74-100); Total Protein,Serum 5.8 g/dl (6.3-8.2)
[2024-09-25 17:39] LABS: INR 1.01 (0.9-1.1); Prothrombin Time 11.3 seconds (10.1-12.5)
[2024-09-25 17:55] LABS: D-Dimer < 0.25 ug/mL (0.0-0.5)
--- NOTE | 2024-09-25 18:42 | EXP.HPDC ---
General Admission date:: 09/25/24 *Admission Date: 09/25/24 *Chief complaint: Hypothermia *History of present illness: Shayna Slade is a 54-year-old female with a medical history significant for end-stage [facility] who presented with hypothermia, bradycardia, acute encephalopathy. She arrived from [facility] where she sleeps by the window per son. Patient was placed on a Donavan hugger which gradually improved her hypothermia and overall clinical status. [facility] Disclaimer: The information contained in this section may have been updated after the patient was seen, as this information can be updated by other users. Medical History H/O thrombocytosis elevated platelets at least over past year. Recent CBC with plts at 500 Abnormal breathing Dysphagia Depression stable [facility] disease Progressive neurodegenerative disease. Family History Other Rochelle disease Social History (Updated 09/25/24 @ 16:09 by Oliva Brian RN) Smoking Status: Former smoker alcohol intake: never current occupational status: disabled Travel in the last 8 weeks: None housing: [facility] Have you lived/traveled outside [place] in past 30 days?: No Contact w/someone who lives/traveled outside US past 30 days?: No Exposure to someone with infectious disease in past 14 days?: No Do you have a fever (greater than 100.4 F or 38 C)?: No Have you tested positive for COVID-19: No Exposed to someone with COVID-19 in past 14 days?: No Do you have a sore throat?: No Do you have a cough?: No Do you have any weakness?: Yes Do you have any diarrhea?: No Are you experiencing any unusual bleeding?: No Do you have any muscle aches/pain?: No Do you have any abdominal pain?: No Are you experiencing loss of taste or smell?: No Other Medical History Have you received the Flu Vaccine for this season: Yes Have you received the Pneumonia Vaccine: Yes Exam Data for Last 24 hours Vital signs and Labs for Last 24 Hours: Temp Pulse Resp BP Pulse Ox O2 Del Method 97.1 F L 72 18 123/58 L 94 L Room Air 09/25/24 15:49 09/25/24 15:49 09/25/24 15:49 09/25/24 15:49 09/25/24 15:49 09/25/24 18:17 Laboratory Results - last 24 hr 09/25/24 16:28: VBG pH 7.54 H 09/25/24 17:10: WBC 4.9, RBC 4.22, Hgb 11.9 L, Hct 35.2 L, MCV 83.4, MCH 28.2, MCHC 33.8, RDW 16.2, Plt Count 254, MPV 9.3, Neut % (Auto) 80.4 H, Lymph % (Auto) 14.1, Weakley % (Auto) 4.1, Eos % (Auto) 0.6, Baso % (Auto) 0.6, Neut # (Auto) 3.9, Lymph # (Auto) 0.7, Weakley # (Auto) 0.2, Eos # (Auto) 0.0, Baso # (Auto) 0.0, PT 11.3, INR 1.01, D-Dimer < 0.25, Sodium 139, Potassium 4.0, Chloride 105, Carbon Dioxide 29, Anion Gap 9.0, BUN 22 H, Creatinine 0.90, Estimated Creat Clear 40, Estimated GFR 65, Est GFR ( Amer) 79, Glucose 124 H, Calcium 9.0, Total Bilirubin 0.2, AST 56 H, ALT 45, Alkaline Phosphatase 100, Total Protein 5.8 L, Albumin 3.2 L, Globulin 2.6, Albumin/Globulin Ratio 1.2 I & O for Last 24 hours: Intake & Output 09/22/24 09/23/24 09/24/24 09/25/24 23:59 23:59 23:59 23:59 Weight 35.635 kg Constitutional Constitutional: no acute distress Comments: Overall pleasant, Rochelle's chorea. *Routine HEENT Exam Head: Present normocephalic Eye: Present EOMI and PERRL ENT: Present mucous membranes moist *Routine Neck Exam Neck: Present supple; Absent lymphadenopathy *Routine Respiratory Exam Respiratory: Present CTA bilaterally *Routine Cardiovascular Exam Cardiovascular: Present RRR *Routine Abdominal Exam Abdominal: Present soft and normoactive bowel sounds; Absent tenderness *Routine Rectal Exam Rectal:: deferred *Routine Genitalia Exam Genitalia:: deferred *Routine Extremities Exam Extremities: Absent cyanosis, clubbing or edema *Routine Skin Exam Skin: Present warm; Absent rash *Routine Neurological Exam Neurological: Present alert Meds Home Medications and Allergies Home Medications ?Medication ?Instructions ?Recorded ?Confirmed ?Type acetaminophen 500 mg capsule 500 mg PO Q4H PRN 03/28/22 09/08/24 History albuterol sulfate 90 mcg/actuation 90 mcg inhalation Q4H PRN 03/28/22 09/08/24 History breath activated powder inhaler,sensor (Proair Digihaler) aluminum hydrox-magnesium carb 95 30 ml PO QPCHS 11/07/22 09/08/24 History mg-358 mg/15 mL oral suspension (Gaviscon) olanzapine 20 mg tablet (Zyprexa) 20 mg PO HS 11/07/22 09/08/24 History citalopram 20 mg tablet 40 mg PO DAILY 01/16/23 09/08/24 History amantadine HCl 50 mg/5 mL oral 200 mg PO BID Chorea, [facility] 04/15/23 09/08/24 History solution disease haloperidol 0.5 mg tablet 1.5 mg (3 x 0.5 mg) PO TID severe 04/15/23 09/08/24 Rx chorea, agitation #270 tabs tetrabenazine 25 mg tablet 25 mg PO BID 04/15/23 09/08/24 History bisacodyl 10 mg rectal suppository 10 mg VA .every 3 days PRN 08/28/23 09/08/24 History multivitamin with minerals 1 tab PO DAILY 08/28/23 09/08/24 History simethicone 80 mg chewable tablet 80 mg PO TID gas 08/28/23 09/08/24 History (Gas Relief 80 (simethicone)) tetrabenazine 25 mg tablet 50 mg PO AM 08/28/23 09/08/24 History cetirizine 10 mg tablet (All Day 10 mg PO DAILY 08/03/24 09/08/24 History Allergy (cetirizine)) lactulose 10 gram/15 mL oral 20 g PO HS 08/03/24 09/08/24 History solution ondansetron 4 mg disintegrating 4 mg PO .before meals 08/03/24 09/08/24 History tablet ondansetron 4 mg disintegrating 4 mg PO Q6H PRN 08/03/24 09/08/24 History tablet psyllium husk 0.4 gram capsule 0.4 g PO DAILY 08/03/24 09/08/24 History (Reguloid (psyllium husk)) sennosides 8.6 mg-docusate sodium 2 tab-cap PO TID constipation 08/03/24 09/08/24 History 50 mg tablet (Senexon-S) clonazepam 0.5 mg tablet (Klonopin) 1 mg (2 x 0.5 mg) PO TID #180 tabs 08/18/24 09/08/24 Rx famotidine 20 mg tablet 20 mg PO BID 09/07/24 09/08/24 History New Prescriptions to Start Prescriptions: Allergies Allergy/AdvReac Type Severity Reaction Status Date / Time No Known Allergies Allergy Verified 09/08/24 10:04 Hospital Course Hospital Course Hospital Course: Shayna Slade is a 54-year-old female with a medical history significant for end-stage [facility] who presented with hypothermia, bradycardia, acute encephalopathy. She arrived from [facility] where she sleeps by the window per son. Patient was placed on a Donavan hugger which gradually improved her hypothermia and overall clinical status. Initial temperature 90 Fahrenheit, respiratory rate 10, pulse rate 38, blood pressure 100/76. After extensive discussions with patient's son, only intervention that was applied was a Donavan hugger which significantly improved patient's overall clinical state. Vital signs are currently stable. CBC, CMP, PT/INR, VBG, D-dimer are all unremarkable. Son declined urine analysis as this would require straight catheterization. Per son, patient is back to her baseline. She is medically stable for discharge back to [facility]. I recommended a space heater and distancing away from the window where she sleeps. Results Data Completed and Pending Labs on day of discharge: Labs from last 24 hours 09/25/24 09/25/24 17:10 16:28 WBC 4.9 RBC 4.22 Hgb 11.9 L Hct 35.2 L MCV 83.4 MCH 28.2 MCHC 33.8 RDW 16.2 Plt Count 254 MPV 9.3 Neut % (Auto) 80.4 H Lymph % (Auto) 14.1 Weakley % (Auto) 4.1 Eos % (Auto) 0.6 Baso % (Auto) 0.6 Neut # (Auto) 3.9 Lymph # (Auto) 0.7 Weakley # (Auto) 0.2 Eos # (Auto) 0.0 Baso # (Auto) 0.0 PT 11.3 INR 1.01 D-Dimer < 0.25 VBG pH 7.54 H Sodium 139 Potassium 4.0 Chloride 105 Carbon Dioxide 29 Anion Gap 9.0 BUN 22 H Creatinine 0.90 Estimated Creat Clear 40 Estimated GFR 65 Est GFR ( Amer) 79 Glucose 124 H Calcium 9.0 Total Bilirubin 0.2 AST 56 H ALT 45 Alkaline Phosphatase 100 Total Protein 5.8 L Albumin 3.2 L Globulin 2.6 Albumin/Globulin Ratio 1.2 DS: Diagnosis Discharge Diagnosis (1) Acute encephalopathy: Status: Acute Code(s): G93.40 - Encephalopathy, unspecified (2) Bradycardia: Status: Acute Code(s): R00.1 - Bradycardia, unspecified (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 (4) Hypothermia: Status: Acute Code(s): T68.XXXA - Hypothermia, initial encounter Discharge Plan Disposition Patient Disposition: Xfer SNF Condition: Fair Discharge Order Discharge Orders: Discharge Order (Routine); Ordered 09/25/24 Ordered By: Julius Gatica Follow up Plan Prescriptions/Medication Reconciliation: Continued Gaviscon 95-358 mg/15 mL suspension 30 ml PO QPCHS olanzapine [Zyprexa] 20 mg tablet 20 mg PO HS amantadine HCl 50 mg/5 mL solution 200 mg PO BID haloperidol 0.5 mg tablet 1.5 mg PO TID MDD 4.5 mg Qty: 270 3RF acetaminophen 500 mg capsule 500 mg PO Q4H PRN Proair Digihaler 90 mcg/actuation aero powdr breath act w/sensor 90 mcg IH Q4H PRN citalopram 20 mg tablet 40 mg PO DAILY cetirizine [All Day Allergy (cetirizine)] 10 mg tablet 10 mg PO DAILY tetrabenazine 25 mg tablet 25 mg PO BID Rx Instructions: noon and bedtime lactulose 10 gram/15 mL solution 20 g PO HS ondansetron 4 mg tablet,disintegrating 4 mg PO .before meals Rx Instructions: 6:30am, 11:30am, 4:30pm psyllium husk [Reguloid (psyllium husk)] 0.4 gram capsule 0.4 g PO DAILY bisacodyl 10 mg suppository 10 mg VA .every 3 days PRN simethicone [Gas Relief 80 (simethicone)] 80 mg tablet,chewable 80 mg PO TID tetrabenazine 25 mg tablet 50 mg PO AM Rx Instructions: give at 9 am multivitamin with minerals Tablet 1 tab PO DAILY ondansetron 4 mg tablet,disintegrating 4 mg PO Q6H PRN sennosides-docusate sodium [Senexon-S] 8.6-50 mg tablet 2 tab-cap PO TID clonazepam [Klonopin] 0.5 mg tablet 1 mg PO TID Qty: 180 5RF famotidine 20 mg tablet 20 mg PO BID Problem Reconciliation Problems Reviewed?: Yes Patient Discharge Instructions Patient Instructions: Hypothermia Print Language: Croatian Providers Primary Care Provider: Provider,Referral Admit Provider: Julius Gatica Attending Provider: Julius Gatica
--- NOTE | 2024-09-27 11:25 | CARE MANAGER ---
Spoke with Raisa at [facility]. Patient is [facility]CF level of care there.
== END 2024-09-25 20:35 ==
LOC: ER 11:45 → 2ND 14:00
PROVIDERS: Admitting Provider Student in an Organized Health Care Education/Training Program; Emergency Provider Student in an Organized Health Care Education/Training Program; Visit Provider Student in an Organized Health Care Education/Training Program
DX: G10 Huntington's disease (principal); G93.40 Encephalopathy, unspecified; T68.XXXA Hypothermia, initial encounter; R40.2432 Glasgow coma scale score 3-8, at arrival to emergency department; R00.1 Bradycardia, unspecified; E88.A Wasting disease (syndrome) due to underlying condition; Z68.1 Body mass index [BMI] 19.9 or less, adult; Z87.891 Personal history of nicotine dependence; Z79.51 Long term (current) use of inhaled steroids; Z79.899 Other long term (current) drug therapy
CPT/HCPCS: 36415; 80053; 85025; 85378; 85610; 99285; G0378

== ENCOUNTER 2024-10-12 14:01 | Inpatient (IN) | payer MEDICAID, SELFPAY ==
[2024-10-12] VITALS (7 sets, daily range): BP systolic 101–122; BP diastolic 62–82; PULSE 38–66; RESP 6–17; TEMP 32.1–35.3; O2SAT 91–100; BMI 15.6
--- NOTE | 2024-10-12 14:42 | PC.NURSE ---
bear hugger applied to pt due to low rectal temperature.
[2024-10-12] MEDS: LACTATED RINGERS 1000ML 1,000 ML 999 ML IV (15:02)
--- NOTE | 2024-10-12 15:13 | HMH.EDGENADL ---
Discharge Plan Disposition Patient Disposition: Admitted Prescriptions Prescriptions: No Action olanzapine [Zyprexa] 20 mg tablet 20 mg PO HS Gaviscon 95-358 mg/15 mL suspension 30 ml PO BID PRN amantadine HCl 50 mg/5 mL solution 200 mg PO BID haloperidol 0.5 mg tablet 1.5 mg PO TID MDD 4.5 mg Qty: 270 3RF acetaminophen 500 mg capsule 500 mg PO Q4H PRN Proair Digihaler 90 mcg/actuation aero powdr breath act w/sensor 90 mcg IH Q4H PRN citalopram 20 mg tablet 40 mg PO DAILY cetirizine [All Day Allergy (cetirizine)] 10 mg tablet 10 mg PO DAILY tetrabenazine 25 mg tablet 25 mg PO BID Rx Instructions: noon and bedtime lactulose 10 gram/15 mL solution 20 g PO HS ondansetron 4 mg tablet,disintegrating 4 mg PO .before meals Rx Instructions: 6:30am, 11:30am, 4:30pm psyllium husk [Reguloid (psyllium husk)] 0.4 gram capsule 0.4 g PO DAILY bisacodyl 10 mg suppository 10 mg AL .every 3 days PRN simethicone [Gas Relief 80 (simethicone)] 80 mg tablet,chewable 80 mg PO TID tetrabenazine 25 mg tablet 50 mg PO AM Rx Instructions: give at 9 am multivitamin with minerals Tablet 1 tab PO DAILY ondansetron 4 mg tablet,disintegrating 4 mg PO Q6H PRN sennosides-docusate sodium [Senexon-S] 8.6-50 mg tablet 2 tab-cap PO TID clonazepam [Klonopin] 0.5 mg tablet 1 mg PO TID Qty: 180 5RF famotidine 20 mg tablet 20 mg PO BID Referrals Follow up/Referrals: Provider,Referral, MD [Primary Care Provider] - See instructions Clinical Impressions Clinical Impression: Quitman's disease, Bradycardia, Altered mental state, Hypothermia, Progressive neurologic decline Print Language Print Language: Palestinian Discharge ED Provider: Shayna Gutierrez General Adult HPI General Chief complaint: Weakness Stated complaint: WEAKNESS Time Seen by Provider: 10/12/24 14:11 Mode of Arrival: EMS Source of Information: Patient and EMS Limitations: No Limitations Description of Symptoms (Recalled from ER Triage Doc. by RN): pt presents to ED via EMS for decreased responsiveness, low oxygen, low temperature. pt unable to answer questions, this is baseline. 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 History of Present Illness HPI narrative: This patient is a 54-year-old female with a history of Quitman's disease [facility] with concern for decreased responsiveness, low oxygen, low temperature, low oral intake. History provided by EMS and nursing facility, as patient is minimally responsive. She has been noncommunicative and nonmobile for an extended period of time and was brought in 10/16 for similar issue. She was made comfort care at that time by her son who advised that she would not want aggressive life-sustaining measures and would want to be kept comfortable. I did call and discussed the patient's care with her son, Donnie Pizarro, again today who advised that that is still his wish. He states that he told the nursing facility that she could be brought to the ER so that way we could help warm her and give her warm fluids to keep her comfortable, as I thought he would want at this time. Related Data Home Medications ?Medication ?Instructions ?Recorded ?Confirmed acetaminophen 500 mg capsule 500 mg PO Q4H PRN 03/28/22 10/12/24 albuterol sulfate 90 mcg/actuation 90 mcg inhalation Q4H PRN 03/28/22 10/12/24 breath activated powder inhaler,sensor (Proair Digihaler) olanzapine 20 mg tablet (Zyprexa) 20 mg PO HS 11/07/22 10/12/24 citalopram 20 mg tablet 40 mg PO DAILY 01/16/23 10/12/24 amantadine HCl 50 mg/5 mL oral 200 mg PO BID Chorea, Rochelle's 04/15/23 10/12/24 solution disease tetrabenazine 25 mg tablet 25 mg PO BID 04/15/23 10/12/24 bisacodyl 10 mg rectal suppository 10 mg AL .every 3 days PRN 08/28/23 10/12/24 multivitamin with minerals 1 tab PO DAILY 08/28/23 10/12/24 simethicone 80 mg chewable tablet 80 mg PO TID gas 08/28/23 10/12/24 (Gas Relief 80 (simethicone)) tetrabenazine 25 mg tablet 50 mg PO AM 08/28/23 10/12/24 cetirizine 10 mg tablet (All Day 10 mg PO DAILY 08/03/24 10/12/24 Allergy (cetirizine)) lactulose 10 gram/15 mL oral 20 g PO HS 08/03/24 10/12/24 solution ondansetron 4 mg disintegrating 4 mg PO .before meals 08/03/24 10/12/24 tablet ondansetron 4 mg disintegrating 4 mg PO Q6H PRN 08/03/24 10/12/24 tablet psyllium husk 0.4 gram capsule 0.4 g PO DAILY 08/03/24 10/12/24 (Reguloid (psyllium husk)) sennosides 8.6 mg-docusate sodium 2 tab-cap PO TID constipation 08/03/24 10/12/24 50 mg tablet (Senexon-S) famotidine 20 mg tablet 20 mg PO BID 09/07/24 10/12/24 aluminum hydrox-magnesium carb 95 30 ml PO BID PRN 10/12/24 10/12/24 mg-358 mg/15 mL oral suspension (Gaviscon) Previous Rx's ?Medication ?Instructions ?Recorded haloperidol 0.5 mg tablet 1.5 mg (3 x 0.5 mg) PO TID severe 04/15/23 chorea, agitation #270 tabs clonazepam 0.5 mg tablet (Klonopin) 1 mg (2 x 0.5 mg) PO TID #180 tabs 08/18/24 Allergies Allergy/AdvReac Type Severity Reaction Status Date / Time No Known Allergies Allergy Verified 10/12/24 11:36 [facility] Disclaimer: The information contained in this section may have been updated after the patient was seen, as this information can be updated by other users. Medical History Need for comfort care End of life care Acute encephalopathy Bradycardia Elevated WBC count Colon cancer screening H/O thrombocytosis Abnormal breathing Dysphagia Depression Quitman's disease Family History Other Rochelle disease Social History Smoking Status: Never smoker alcohol intake: never current occupational status: disabled Travel in the last 8 weeks: None housing: jail Other Medical History Have you received the Flu Vaccine for this season: No Have you received the Pneumonia Vaccine: Yes (01/10/22) ROS Obtained: Yes All systems reviewed & no additional complaints except as documented Physical Exam General General appearance: cachectic Comment: Somnolent, arouses to voice, nonverbal. Cachectic, chronically ill-appearing Head Head exam: atraumatic and normocephalic Eye Eye exam: Present normal appearance, PERRL and EOMI ENT ENT exam: Present mucous membranes dry and normal external ear exam Neck Neck exam: Present normal inspection, full ROM and trachea midline; Absent tenderness Chest Chest inspection: Present normal inspection and symmetric chest wall rise; Absent tenderness Respiratory Respiratory exam: Present normal lung sounds bilaterally and other (Bradypnea); Absent respiratory distress, wheezes, stridor or accessory muscle use Cardiovascular Cardiovascular exam: Present normal rhythm and bradycardia Abdominal Exam Abdominal exam: Present soft; Absent distention, tenderness or guarding Extremities Exam Extremities exam: Absent edema Neurological Exam Neurological exam: Absent alert Expanded Neurological Exam Coma scale eye opening: To voice Coma scale motor response: Withdraws to pain Coma scale verbal response: Incomprehensible Coma scale total: 9 Skin Skin exam: Present cyanosis, pallor, mottled and other (Cold) Medical Decision Making Medical Records Medical records reviewed: Yes I reviewed the patient's medical records. Screening: Per USPSTF and CDC recommendations, given the prevalence of disease in our region, it is our hospital?s policy to screen for HIV and viral Hepatitis for all patients aged 18 and over and those with ongoing risk factors. Felix Inquiry Pt receiving controlled substance: No Vital Signs: 10/12/24 14:01 10/12/24 14:32 10/12/24 14:59 Temperature 89.8 F L Temperature Source Rectal Pulse Rate 38 L 40 L Pulse Rate [Left Radial] 39 L Respiratory Rate 6 L 9 L 8 L Blood Pressure 119/75 122/82 Blood Pressure [Right Arm] 119/75 Blood Pressure Mean [Right Arm] 89 02 Sat by Pulse Oximetry 98 100 100 Oxygen Delivery Method Nasal Cannula Room Air Nasal Cannula Oxygen Flow Rate (LPM) 2 10/12/24 15:30 Temperature 89.9 F L Temperature Source Rectal Pulse Rate 40 L Pulse Rate [Left Radial] Respiratory Rate 8 L Blood Pressure 113/76 Blood Pressure [Right Arm] Blood Pressure Mean [Right Arm] 02 Sat by Pulse Oximetry 100 Oxygen Delivery Method Room Air Oxygen Flow Rate (LPM) Lab Data Lab results reviewed: Yes I reviewed the patient's lab results. Orders (Tests/Meds): ED MEDICATIONS Discontinued Medications Generic Name Dose Route Start Last Admin Trade Name Matteo PRN Reason Stop Dose Admin Lactated Ringer's 1,000 mls @ 999 mls/hr 10/12/24 14:39 10/12/24 15:02 Lactated Ringer's 1000 Ml Bag IV 10/12/24 15:39 999 mls/hr .Q1H1M ONE Administration Medical Decision Narrative: In summary, this patient is a 54-year-old female presenting to the Emergency Department for evaluation of decreased responsiveness, low O2, low temperature, no oral intake. She has a history of Quitman's disease with a progressive decline. She was evaluated here 09/25/23 and was critically ill at that time, admitted for hypothermia and comfort care measures. She was discharged back to nursing facility with DNR/DNI after brief admission with warming with a esteban hugger. She arrives critically ill, hypothermic, bradycardic, hypotensive, but dyspneic. GCS is 9 upon arrival. I called and had a discussion with her son who advised that he would like to keep her comfort care, but he would want her warmed and to give her fluids that she is not dehydrated. I am honoring his and the patient's wishes by doing this. She remained bradycardic, bradypneic, minimally responsive, but her blood pressure is stable in the ED after 1L IVF initiated. O2 saturation 100%. Heart rate remained in the 30s to 40s on cardiac telemetry. Her son is on his way, and we are awaiting his arrival at this time for further care planning. Dr. Gonsalez arrived to the bedside, and he and I both had interactive discussions with the patient's son. At this time, Dr. Gonsalez advised that he would admit the patient for further monitoring and advance care planning. Patient was admitted on comfort care measures in critically ill condition. Critical Care Critical Care Time Critical Care Time: Yes Attestation: On 10/12/24, the high probability of a clinically significant, sudden or life threatening deterioration of the following system(s) required my full and direct attention, intervention and personal management. The time I documented below is in addition to time spent performing reported procedures but includes the following listed in this critical care notation. Total Time Total Critical Care Time: 30
--- NOTE | 2024-10-12 16:46 | EXP.HP ---
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 Presented 2-1/2 weeks ago for similar symptoms of hypothermia and confusion. She presented to the ER via EMS today for decreased responsiveness, hypoxia, hypothermia after being evaluated by her nurse practitioner at her residential. On arrival to the ER, patient found to be hypothermic with body temperature of 89 degrees, heart rate low in the 30s and respiratory rate 8-9. Goals of care discussion was had with patient's son who wished to proceed with warming the patient with a bear hugger and giving her warm fluids to see how she responds as she improved and her alertness 2-1/2 weeks ago with similar treatment. He does not however wish to proceed with aggressive life-sustaining measures, does not want to perform any needle sticks to obtain labs, put her through extensive imaging or workup. Medicine was consulted for admission and further management with comfort measures. I evaluated the patient in the ER after the son arrived. Extensive discussion with him at bedside. Does want to focus on comfort and quality. States his mom would not want aggressive life-prolonging treatments but is interested in IV fluids. He would like to give her at least 24 hours to see how she responds with core temperature improving. Explained to him that my concern is that she is dying. He stated understanding. Wants to make sure she is comfortable. Does not want to pursue workup for infection or treatment with antibiotics at this time. Patient unresponsive on exam. Obtunded. Laying on her right side in bed. Patient's baseline level of function is somewhat interactive, alert, regular choreiform movement. 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 [facility] Disclaimer: The information contained in this section may have been updated after the patient was seen, as this information can be updated by other users. Medical History (Updated 10/12/24 @ 17:55 by Charlotte Mederos RN) Allergic rhinitis Anxiety Asthma Need for comfort care End of life care Acute encephalopathy Bradycardia Elevated WBC count Colon cancer screening H/O thrombocytosis Abnormal breathing Dysphagia Depression Everett's disease Family History Rochelle disease Social History Smoking Status: Never smoker alcohol intake: never current occupational status: disabled Travel in the last 8 weeks: None housing: residential Other Medical History Have you received the Flu Vaccine for this season: No Have you received the Pneumonia Vaccine: Yes (01/10/22) Review of Systems Review of Systems Review of systems:: unable to obtain Meds Home Medications and Allergies Home Medications ?Medication ?Instructions ?Recorded ?Confirmed ?Type acetaminophen 500 mg capsule 500 mg PO Q4H PRN pain/fever 03/28/22 10/12/24 History albuterol sulfate 90 mcg/actuation 90 mcg inhalation Q4H PRN 03/28/22 10/12/24 History breath activated powder Breathing Problems inhaler,sensor (Proair Digihaler) olanzapine 20 mg tablet (Zyprexa) 20 mg PO HS 11/07/22 10/12/24 History citalopram 20 mg tablet 40 mg PO DAILY 01/16/23 10/12/24 History amantadine HCl 50 mg/5 mL oral 200 mg PO BID Chorea, Rochelle's 04/15/23 10/12/24 History solution disease haloperidol 0.5 mg tablet 1.5 mg (3 x 0.5 mg) PO TID severe 04/15/23 10/12/24 Rx chorea, agitation #270 tabs tetrabenazine 25 mg tablet 25 mg PO BID 04/15/23 10/12/24 History bisacodyl 10 mg rectal suppository 10 mg CA .every 3 days PRN bowel 08/28/23 10/12/24 History health multivitamin with minerals 1 tab PO DAILY 08/28/23 10/12/24 History simethicone 80 mg chewable tablet 80 mg PO TID gas 08/28/23 10/12/24 History (Gas Relief 80 (simethicone)) tetrabenazine 25 mg tablet 50 mg PO AM 08/28/23 10/12/24 History cetirizine 10 mg tablet (All Day 10 mg PO DAILY 08/03/24 10/12/24 History Allergy (cetirizine)) lactulose 10 gram/15 mL oral 20 g PO HS 08/03/24 10/12/24 History solution ondansetron 4 mg disintegrating 4 mg PO .before meals 08/03/24 10/12/24 History tablet ondansetron 4 mg disintegrating 4 mg PO Q6H PRN Nausea 08/03/24 10/12/24 History tablet psyllium husk 0.4 gram capsule 0.4 g PO DAILY 08/03/24 10/12/24 History (Reguloid (psyllium husk)) sennosides 8.6 mg-docusate sodium 2 tab-cap PO TID constipation 08/03/24 10/12/24 History 50 mg tablet (Senexon-S) clonazepam 0.5 mg tablet (Klonopin) 1 mg (2 x 0.5 mg) PO TID #180 tabs 08/18/24 10/12/24 Rx famotidine 20 mg tablet 20 mg PO BID 09/07/24 10/12/24 History aluminum hydrox-magnesium carb 95 30 ml PO BID PRN gerd 10/12/24 10/12/24 History mg-358 mg/15 mL oral suspension (Gaviscon) New Prescriptions to Start Prescriptions: Allergies Allergy/AdvReac Type Severity Reaction Status Date / Time No Known Allergies Allergy Verified 10/12/24 11:36 Exam Data for Last 24 hours Vital signs and Labs for Last 24 Hours: Temp Pulse Resp BP Pulse Ox O2 Del Method O2 Flow Rate 89.9 F L 40 L 8 L 113/76 100 Room Air 2 10/12/24 15:30 10/12/24 15:30 10/12/24 15:30 10/12/24 15:30 10/12/24 15:30 10/12/24 15:30 10/12/24 14:01 I & O for Last 24 hours: Intake & Output 10/09/24 10/10/24 10/11/24 10/12/24 23:59 23:59 23:59 23:59 Weight 42.638 kg Constitutional Constitutional: cachectic, chronically ill appearing and obtunded *Routine HEENT Exam Head: Present normocephalic Eye: Absent periorbital swelling ENT: Present mucous membranes dry Comments: Loss of periorbital fat *Routine Neck Exam Neck: Present supple; Absent lymphadenopathy *Routine Respiratory Exam Respiratory: Present diminished air movement; Absent respiratory distress, stridor, wheezes or crackles Comments: bradypneic *Routine Cardiovascular Exam Cardiovascular: Present bradycardia *Routine Abdominal Exam Abdominal: Present soft and normoactive bowel sounds; Absent tenderness *Routine Rectal Exam Rectal:: deferred *Routine Genitalia Exam Genitalia:: deferred *Routine Extremities Exam Extremities: Present cyanosis (fingertips cold and cyanotic); Absent clubbing or edema Comments: sarcopenia *Routine Skin Exam Skin: Present intact and warm; Absent rash *Routine Neurological Exam Neurological: Present altered mental status; Absent moving all extremities Comments: laying in position on right side in bed Assessment and Plan *Assessment and plan (1) Everett's disease: Status: Acute Category: Medical Code(s): G10 - Everett's disease (2) Acute encephalopathy: Status: Acute Category: Medical Code(s): G93.40 - Encephalopathy, unspecified (3) Bradycardia: Status: Acute Category: Medical Code(s): R00.1 - Bradycardia, unspecified (4) Hypothermia: Status: Acute Category: Medical Code(s): T68.XXXA - Hypothermia, initial encounter (5) Progressive neurologic decline: Status: Acute Category: Medical Code(s): R29.818 - Other symptoms and signs involving the nervous system (6) Severe protein-calorie malnutrition: Status: Acute Category: Medical Code(s): E43 - Unspecified severe protein-calorie malnutrition Plan 54-year-old female with progressing neurologic decline secondary to Everett's disease. Presents with hypothermia, acute encephalopathy, bradycardia. On evaluation, concern for vital instability secondary to either progressing neurologic disease or autonomic instability and inability to maintain body temperature and vitals. Discussed case with ER physician, request admission for management overnight and to monitor response to [place] hugger and warmed fluids. I agreed to admit after discussion with son. Per discussion with family, we will not pursue any labs or aggressive workup at this time. Continue with IV fluids. Continue comfort care. Monitor vitals for improvement in body temperature. Monitor for improvement in patient's alertness and orientation. Given the acute worsening of her Everett's, worsening encephalopathy, obtundation and vital instability, her problem complexity is high. Decision made not to resuscitate and to make patient comfort care. Patient's risk of morbidity/mortality is high. Continue LR at 50 cc an hour. Currently on 2 L nasal cannula GEN to maintain sats greater 90%. Reeval weight for hospice in the morning. Holding all medications given patient's obtunded state. Reevaluate need for tetrabenazine in the morning. DNR/DNI; Comfort care comfort feeds, regular diet no anti-coagulation in line with GOC (no needle sticks or labs)
--- NOTE | 2024-10-12 17:20 | PC.NURSE ---
report called to debbi on second floor
--- NOTE | 2024-10-12 17:33 | PC.NURSE ---
arrived to floor from ED by stretcher
[2024-10-12] MEDS: LACTATED RINGERS 1000ML 1,000 ML 50 ML IV (17:54)
[2024-10-12 22:46] LABS: HIV Combo NEGATIVE (Negative)
[2024-10-12 22:54] LABS: Hepatitis C Ab Qual. W/ RFX NEGATIVE (Negative)
[2024-10-12] MEDS: ACETAMINOPHEN 650MG SUPPOSITORY 650 MG RC (23:11)
--- NOTE | 2024-10-12 23:15 | PC.NURSE ---
contacted [facility]. Pt family states that pt admitted to a [facility] and requested pain relief medication. Tylenol suppository given. Pt temp has reached 97.9 RC at this time. Bear hugger and warm blankets still in place.
[2024-10-13 04:00] VITALS: BMI 15.6
[2024-10-13] MEDS: MORPHINE 2MG/ML SYRINGE 2 MG IV (05:27)
[2024-10-13 08:00] VITALS: BP 128/86; PULSE 63; RESP 17; TEMP 35.7; O2SAT 95
--- NOTE | 2024-10-13 08:05 | P.CONPHA_ITS ---
Pharmacy Intervention Comments: home medication list verified using list from [facility]
--- NOTE | 2024-10-13 08:05 | HMH.PHAINT1 ---
Pharmacy Intervention Comments: home medication list verified using list from [facility]
[2024-10-13 11:58] LABS: Adenovirus,PCR Not Detected (NotDetected); Bordetella Pertussis Not Detected (NotDetected); Chlamydophila Pneumoniae, PCR Not Detected (NotDetected); Coronavirus 19, PCR Not Detected (NotDetected); Coronavirus 229E Not Detected (NotDetected); Coronavirus NL63 Not Detected (NotDetected); Coronovirus HKU1,PCR Not Detected (NotDetected); Human Metapneumovirus Not Detected (NotDetected); Influenza A, PCR Not Detected (NotDetected); Influenza AH1, 2009 Not Detected (NotDetected); Influenza AH1, PCR Not Detected (NotDetected); Influenza AH3,PCR Not Detected (NotDetected); Influenza B, PCR Not Detected (NotDetected); Mycoplasma Pneumoniae, PCR Not Detected (NotDetected); Parainfluenza 1, PCR Not Detected (NotDetected); Parainfluenza 2, PCR Not Detected (NotDetected); Parainfluenza 3, PCR Not Detected (NotDetected); Parainfluenza 4, PCR Not Detected (NotDetected); Respiratory Syncytial Virus Not Detected (NotDetected); Rhinovirus/Enterovirus Not Detected (NotDetected)
[2024-10-13 12:00] VITALS: TEMP 37.3
[2024-10-13 13:24] LABS: Coronavirus OC43 Detected (NotDetected)
--- NOTE | 2024-10-13 14:53 | EXP.DC.SUM ---
General Admission date:: 10/12/24 Discharge date: 10/13/24 HPI HPI HPI: Ms. 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 Presented 2-1/2 weeks ago for similar symptoms of hypothermia and confusion. She presented to the ER via EMS today for decreased responsiveness, hypoxia, hypothermia after being evaluated by her nurse practitioner at her skilled nursing. On arrival to the ER, patient found to be hypothermic with body temperature of 89 degrees, heart rate low in the 30s and respiratory rate 8-9. Goals of care discussion was had with patient's son who wished to proceed with warming the patient with a bear hugger and giving her warm fluids to see how she responds as she improved and her alertness 2-1/2 weeks ago with similar treatment. He does not however wish to proceed with aggressive life-sustaining measures, does not want to perform any needle sticks to obtain labs, put her through extensive imaging or workup. Medicine was consulted for admission and further management with comfort measures. I evaluated the patient in the ER after the son arrived. Extensive discussion with him at bedside. Does want to focus on comfort and quality. States his mom would not want aggressive life-prolonging treatments but is interested in IV fluids. He would like to give her at least 24 hours to see how she responds with core temperature improving. Explained to him that my concern is that she is dying. He stated understanding. Wants to make sure she is comfortable. Does not want to pursue workup for infection or treatment with antibiotics at this time. Patient unresponsive on exam. Obtunded. Laying on her right side in bed. Patient's baseline level of function is somewhat interactive, alert, regular choreiform movement. 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 Hospital Course Hospital Course Hospital Course: 54-year-old female with progressing neurologic decline secondary to Shelby's disease. Presents with hypothermia, acute encephalopathy, bradycardia. On evaluation, concern for vital instability secondary to either progressing neurologic disease or autonomic instability and inability to maintain body temperature and vitals. Discussed case with ER physician, request admission for management overnight and to monitor response to Donavan hugger and warmed fluids. I agreed to admit after discussion with son. Per discussion with family, we will not pursue any labs or aggressive workup at this time. Continue with IV fluids. Continue comfort care. Monitor vitals for improvement in body temperature. Monitor for improvement in patient's alertness and orientation. Given the acute worsening of her Shelby's, worsening encephalopathy, obtundation and vital instability, her problem complexity is high. Decision made not to resuscitate and to make patient comfort care. Patient's risk of morbidity/mortality is high. Treated with IV fluids overnight. Showed improvement in alertness and interactivity as her core temperature warmed. Weaned to room air overnight. Tolerated breakfast and lunch with assistance from acute care certified nursing assistant feeding patient. Extensive discussion with son on day of discharge. As patient is improved and more alert, using hand motions to ask for food and liquids, will plan to discharge back to nursing facility for continued care. Of note, patient tested positive for coronavirus OC43 on comprehensive respiratory panel. Likely part of the etiology of her symptoms. Additionally however have concern that her autonomic instability is related to progression of her Rochelle's disease. Continue with mechanical soft diet, nutrition and liquids as needed. Discussed hospice if patient's condition declines. Strong concern her presentation will recur in the coming weeks. It is my opinion that patient is nearing end-of-life. Exam Data for Last 24 hours Vital signs and Labs for Last 24 Hours: Temp Pulse Resp BP Pulse Ox O2 Del Method O2 Flow Rate 96.3 F L 63 17 128/86 95 Room Air 2 10/13/24 08:00 10/13/24 08:00 10/13/24 08:00 10/13/24 08:00 10/13/24 08:00 10/13/24 14:36 10/12/24 14:01 Laboratory Results - last 24 hr 10/12/24 21:14: HCV Ab FARA w/Rflx PCR Qn Negative, HIV Ag/Ab Combo Qual Negative 10/13/24 11:53: Chlamy pneumoniae PCR Not detected, Adenovirus (PCR) Not detected, B. pertussis DNA (PCR) Not detected, Coronavirus OC43 (PCR) Detected A, Coronavirus HKU1 (PCR) Not detected, Coronavirus 229E (PCR) Not detected, SARS-CoV-2 (PCR) Not detected, Coronavirus NL63 (PCR) Not detected, Human Metapneumovir PCR Not detected, Influenza A (H1) PCR Not detected, Influ A (H1N1/09) PCR Not detected, Influenza A (H3) PCR Not detected, Influenza Type A (PCR) Not detected, Influenza Type B (PCR) Not detected, M. pneumoniae (PCR) Not detected, Parainfluenza 1 (PCR) Not detected, Parainfluenza 2 (PCR) Not detected, Parainfluenza 3 (PCR) Not detected, Parainfluenza 4 (PCR) Not detected, RSV (PCR) Not detected, Entero/Rhino (PCR) Not detected I & O for Last 24 hours: Intake & Output 10/10/24 10/11/24 10/12/24 10/13/24 23:59 23:59 23:59 23:59 Intake Total 806 / 806 Output Total 0 / 0 Balance 806 / 806 Weight 42.638 kg 42.638 kg Constitutional Constitutional: mild distress, cachectic and chronically ill appearing *Routine HEENT Exam Head: Present normocephalic Eye: Present EOMI and PERRL ENT: Present mucous membranes moist Comments: loss of periorbital fat *Routine Neck Exam Neck: Present supple; Absent lymphadenopathy *Routine Respiratory Exam Respiratory: Present CTA bilaterally; Absent respiratory distress, rhonchi, wheezes or crackles *Routine Cardiovascular Exam Cardiovascular: Present RRR *Routine Abdominal Exam Abdominal: Present soft and normoactive bowel sounds; Absent tenderness *Routine Rectal Exam Patient deferred: visual exam *Routine Exam Patient deferred: external exam *Routine Extremities Exam Extremities: Absent cyanosis, clubbing or edema Comments: sarcopenia *Routine Skin Exam Skin: Present warm; Absent rash Comments: bruising on shins *Routine Neurological Exam Neurological: Present alert, altered mental status and moving all extremities Results Data Completed and Pending Labs on day of discharge: Labs from last 24 hours 10/13/24 10/12/24 11:53 21:14 Chlamy pneumoniae PCR Not detected Adenovirus (PCR) Not detected B. pertussis DNA (PCR) Not detected Coronavirus OC43 (PCR) Detected A Coronavirus HKU1 (PCR) Not detected Coronavirus 229E (PCR) Not detected SARS-CoV-2 (PCR) Not detected Coronavirus NL63 (PCR) Not detected HCV Ab FARA w/Rflx PCR Qn Negative HIV Ag/Ab Combo Qual Negative Human Metapneumovir PCR Not detected Influenza A (H1) PCR Not detected Influ A (H1N1/09) PCR Not detected Influenza A (H3) PCR Not detected Influenza Type A (PCR) Not detected Influenza Type B (PCR) Not detected M. pneumoniae (PCR) Not detected Parainfluenza 1 (PCR) Not detected Parainfluenza 2 (PCR) Not detected Parainfluenza 3 (PCR) Not detected Parainfluenza 4 (PCR) Not detected RSV (PCR) Not detected Entero/Rhino (PCR) Not detected DS: Diagnosis Discharge Diagnosis (1) Coronavirus infection: Status: Acute Code(s): B34.2 - Coronavirus infection, unspecified (2) Shelby's disease: Status: Acute Code(s): G10 - Rochelle's disease (3) Acute encephalopathy: Status: Acute Code(s): G93.40 - Encephalopathy, unspecified (4) Bradycardia: Status: Acute Code(s): R00.1 - Bradycardia, unspecified (5) Hypothermia: Status: Acute Code(s): T68.XXXA - Hypothermia, initial encounter (6) Progressive neurologic decline: Status: Acute Code(s): R29.818 - Other symptoms and signs involving the nervous system (7) Severe protein-calorie malnutrition: Status: Acute Code(s): E43 - Unspecified severe protein-calorie malnutrition Meds Home Medications and Allergies Home Medications ?Medication ?Instructions ?Recorded ?Confirmed ?Type acetaminophen 500 mg capsule 500 mg PO Q4H PRN pain/fever 03/28/22 10/12/24 History albuterol sulfate 90 mcg/actuation 90 mcg inhalation Q4HP PRN 03/28/22 10/13/24 History breath activated powder Breathing Problems inhaler,sensor (Proair Digihaler) olanzapine 20 mg tablet (Zyprexa) 20 mg PO HS 11/07/22 10/12/24 History tetrabenazine 25 mg tablet 25 mg PO 1200,2100 04/15/23 10/13/24 History bisacodyl 10 mg rectal suppository 10 mg MD .every 3 days PRN 08/28/23 10/12/24 History Constipation multivitamin with minerals 1 tab PO DAILY 08/28/23 10/12/24 History simethicone 80 mg chewable tablet 80 mg PO TID 08/28/23 10/12/24 History (Gas Relief 80 (simethicone)) tetrabenazine 25 mg tablet 50 mg PO 0900 08/28/23 10/13/24 History cetirizine 10 mg tablet (All Day 10 mg PO DAILY 08/03/24 10/12/24 History Allergy (cetirizine)) lactulose 10 gram/15 mL oral 20 g PO HS 08/03/24 10/12/24 History solution ondansetron 4 mg disintegrating 4 mg PO AC 08/03/24 10/13/24 History tablet ondansetron 4 mg disintegrating 4 mg PO Q6HP PRN Nausea 08/03/24 10/13/24 History tablet psyllium husk 0.4 gram capsule 0.4 g PO DAILY 08/03/24 10/12/24 History (Reguloid (psyllium husk)) sennosides 8.6 mg-docusate sodium 2 tab-cap PO TID 08/03/24 10/12/24 History 50 mg tablet (Senexon-S) famotidine 20 mg tablet 20 mg PO BID 09/07/24 10/12/24 History aluminum hydrox-magnesium carb 95 30 ml PO BID PRN GI DISTRESS 10/12/24 10/12/24 History mg-358 mg/15 mL oral suspension (Gaviscon) amantadine HCl 100 mg capsule 200 mg PO BID 10/13/24 10/13/24 History citalopram 40 mg tablet 40 mg PO DAILY 10/13/24 10/13/24 History clonazepam 1 mg tablet (Klonopin) 1 mg PO TID 10/13/24 10/13/24 History haloperidol 0.5 mg tablet 1.5 mg PO TID 10/13/24 10/12/24 History New Prescriptions to Start Prescriptions: Allergies Allergy/AdvReac Type Severity Reaction Status Date / Time No Known Allergies Allergy Verified 10/12/24 11:36 Discharge Plan Disposition Patient Disposition: [facility] Condition: Undetermined Discharge Order Discharge Orders: Discharge Order (Routine); Ordered 10/13/24 Ordered By: Jorge Gonsalez Follow up Plan Follow up with: Power Pagan MD [Primary Care Provider] - Enter time for follow up Prescriptions/Medication Reconciliation: Continued olanzapine [Zyprexa] 20 mg tablet 20 mg PO HS Gaviscon 95-358 mg/15 mL suspension 30 ml PO BID PRN (Reason: GI DISTRESS) acetaminophen 500 mg capsule 500 mg PO Q4H PRN (Reason: pain/fever) Proair Digihaler 90 mcg/actuation aero powdr breath act w/sensor 90 mcg IH Q4HP PRN (Reason: Breathing Problems) cetirizine [All Day Allergy (cetirizine)] 10 mg tablet 10 mg PO DAILY tetrabenazine 25 mg tablet 25 mg PO 1200,2100 Rx Instructions: noon and bedtime lactulose 10 gram/15 mL solution 20 g PO HS ondansetron 4 mg tablet,disintegrating 4 mg PO AC Rx Instructions: 6:30am, 11:30am, 4:30pm psyllium husk [Reguloid (psyllium husk)] 0.4 gram capsule 0.4 g PO DAILY bisacodyl 10 mg suppository 10 mg MD .every 3 days PRN (Reason: Constipation) simethicone [Gas Relief 80 (simethicone)] 80 mg tablet,chewable 80 mg PO TID tetrabenazine 25 mg tablet 50 mg PO 0900 Rx Instructions: give at 9 am multivitamin with minerals Tablet 1 tab PO DAILY ondansetron 4 mg tablet,disintegrating 4 mg PO Q6HP PRN (Reason: Nausea) sennosides-docusate sodium [Senexon-S] 8.6-50 mg tablet 2 tab-cap PO TID famotidine 20 mg tablet 20 mg PO BID clonazepam [Klonopin] 1 mg tablet 1 mg PO TID citalopram 40 mg tablet 40 mg PO DAILY amantadine HCl 100 mg capsule 200 mg PO BID haloperidol 0.5 mg tablet 1.5 mg PO TID MDD 4.5 mg Problem Reconciliation Problems Reviewed?: Yes Patient Discharge Instructions ACTIVITY: Continue current activity DIET: continue same diet Patient Instructions: Hypothermia, Encephalopathy Print Language: [place]ralt[place] Providers Primary Care Provider: Power Pagan Admit Provider: Jorge Gonsalez Attending Provider: Jorge Gonsalez
[2024-10-13 16:00] VITALS: BP 110/82; PULSE 70; RESP 17; O2SAT 95
== END 2024-10-13 17:55 | DRG 56 ==
LOC: ER 16:44 → 2ND 17:02
PROVIDERS: Admitting Provider Internal Medicine Adolescent Medicine; Emergency Provider Emergency Medicine; PCP Family Medicine; Visit Provider Internal Medicine Adolescent Medicine
DX: G10 Huntington's disease (principal); E43 Unspecified severe protein-calorie malnutrition; U07.1 COVID-19; Z68.1 Body mass index [BMI] 19.9 or less, adult; G93.40 Encephalopathy, unspecified; T68.XXXA Hypothermia, initial encounter; R00.1 Bradycardia, unspecified; I95.9 Hypotension, unspecified; R06.89 Other abnormalities of breathing; R23.0 Cyanosis; Z79.899 Other long term (current) drug therapy; Z79.51 Long term (current) use of inhaled steroids
CPT/HCPCS: 86803; 87389; 87633; 99291; J2270; J7120

== ENCOUNTER 2024-10-14 02:21 | Observation (INO) | payer MEDICAID, SELFPAY ==
[2024-10-14] VITALS (11 sets, daily range): BP systolic 68–125; BP diastolic 41–93; PULSE 69–126; RESP 0–15; TEMP 35.8–37.7; O2SAT 82–100; BMI 15.0; BMI 14.1; BMI 13.5
--- NOTE | 2024-10-14 02:05 | ECG_ITS ---
APPROVED REPORT Exam: Resting ECG HR:100 bpm ECG Measurements Heart Rate 100 AXES DE 188 P 95 QRSd 94 QRS 64 QT 308 T 88 QTc 365 Conclusion SINUS TACHYCARDIA LOW QRS VOLTAGE [QRS DEFLECTION < 0.5/1.0 mV IN LIMB/CHEST LEADS] SEPTAL MYOCARDIAL INFARCTION , OF INDETERMINATE AGE [40+ ms Q WAVE IN V1/V2] ABNORMAL ECG No STEMI Electronically signed by : SHANIQUA SIU, 10/14/2024 06:32:04
--- NOTE | 2024-10-14 02:22 | XR_ITS ---
PROCEDURE INFORMATION: Exam: XR Chest Exam date and time: 10/14/2024 2:27 AM Age: 54 years old Clinical indication: Shortness of breath; Additional info: AMS TECHNIQUE: Imaging protocol: Radiologic exam of the chest. Views: 1 view. COMPARISON: CR XR CHEST PORTABLE 01/24/2023 2:08 AM FINDINGS: Lungs: New masslike focus within the right mid lung not present on the prior study. Pleural spaces: Unremarkable. No pleural effusion. No pneumothorax. Heart/Mediastinum: Unremarkable. No cardiomegaly. Bones/joints: Unremarkable. IMPRESSION: New masslike focus within the right mid lung. Pneumonia is one consideration. Development of a parenchymal mass or atelectasis due to airway lesion could also be considered. CT would be helpful in further evaluation.
--- NOTE | 2024-10-14 02:25 | HMH.EDGENADL ---
Discharge Plan Disposition Patient Disposition: Admitted Clinical Impressions Clinical Impression: Encephalopathy acute, Kosciusko's disease, Progressive neurologic decline, Severe protein-calorie malnutrition, Coronavirus infection, Hypoglycemia, Bradypnea Discharge ED Provider: Kassidy Mekes Adult HPI General Chief complaint: Altered Mental Status Stated complaint: unresponsive Time Seen by Provider: 10/14/24 02:23 History of Present Illness HPI narrative: 54-year-old female with known Kosciusko's disease who was diagnosed with COVID in the last 24 hours presents to the ER with altered mental status. [facility] called for EMS response because the patient had COVID. EMS unfortunately was not given much other history other than patient is a DNR/DNI at the senior living and per EMS paperwork. EMS reports when they arrived, nurses aide said that the patient had not blanked in more than 2 hours. Nursing staff had been sitting with the patient the entire time reportedly. They unfortunately did not provide other history. EMS found the patient unresponsive to any stimuli, blood pressure with systolic of 48, severe bradypnea with respiration rate 5, unable to obtain accurate SpO2. They stated patient's pupils were fixed and blood was pooling in the patient's skin, patient was mottled. Patient was on nasal cannula in route. On arrival, unresponsive. Charge nurse and pump house technician confirmed DNR/DNI, no ACLS, no chemical resuscitation via phone with patient's son as the patient was arriving in the ER. Related Data Home Medications ?Medication ?Instructions ?Recorded ?Confirmed acetaminophen 500 mg capsule 500 mg PO Q4H PRN pain/fever 03/28/22 10/12/24 albuterol sulfate 90 mcg/actuation 90 mcg inhalation Q4HP PRN 03/28/22 10/13/24 breath activated powder Breathing Problems inhaler,sensor (Proair Digihaler) olanzapine 20 mg tablet (Zyprexa) 20 mg PO HS 11/07/22 10/12/24 tetrabenazine 25 mg tablet 25 mg PO 1200,2100 04/15/23 10/13/24 bisacodyl 10 mg rectal suppository 10 mg MI .every 3 days PRN 08/28/23 10/12/24 Constipation multivitamin with minerals 1 tab PO DAILY 08/28/23 10/12/24 simethicone 80 mg chewable tablet 80 mg PO TID 08/28/23 10/12/24 (Gas Relief 80 (simethicone)) tetrabenazine 25 mg tablet 50 mg PO 0900 08/28/23 10/13/24 cetirizine 10 mg tablet (All Day 10 mg PO DAILY 08/03/24 10/12/24 Allergy (cetirizine)) lactulose 10 gram/15 mL oral 20 g PO HS 08/03/24 10/12/24 solution ondansetron 4 mg disintegrating 4 mg PO AC 08/03/24 10/13/24 tablet ondansetron 4 mg disintegrating 4 mg PO Q6HP PRN Nausea 08/03/24 10/13/24 tablet psyllium husk 0.4 gram capsule 0.4 g PO DAILY 08/03/24 10/12/24 (Reguloid (psyllium husk)) sennosides 8.6 mg-docusate sodium 2 tab-cap PO TID 08/03/24 10/12/24 50 mg tablet (Senexon-S) famotidine 20 mg tablet 20 mg PO BID 09/07/24 10/12/24 aluminum hydrox-magnesium carb 95 30 ml PO BID PRN GI DISTRESS 10/12/24 10/12/24 mg-358 mg/15 mL oral suspension (Gaviscon) amantadine HCl 100 mg capsule 200 mg PO BID 10/13/24 10/13/24 citalopram 40 mg tablet 40 mg PO DAILY 10/13/24 10/13/24 clonazepam 1 mg tablet (Klonopin) 1 mg PO TID 10/13/24 10/13/24 haloperidol 0.5 mg tablet 1.5 mg PO TID 10/13/24 10/12/24 Allergies Allergy/AdvReac Type Severity Reaction Status Date / Time No Known Allergies Allergy Verified 10/12/24 11:36 [facility] Disclaimer: The information contained in this section may have been updated after the patient was seen, as this information can be updated by other users. Medical History (Updated 10/14/24 @ 02:50 by Kassidy Meeks MD) Allergic rhinitis Anxiety Asthma Need for comfort care End of life care Acute encephalopathy Bradycardia Elevated WBC count Colon cancer screening H/O thrombocytosis Abnormal breathing Dysphagia Depression Kosciusko's disease Family History Rochelle disease Social History Smoking Status: Unknown if ever smoked alcohol intake: never current occupational status: disabled Travel in the last 8 weeks: None housing: senior living Other Medical History Have you received the Flu Vaccine for this season: No Have you received the Pneumonia Vaccine: No ROS Obtained: Yes unobtainable due to mental status Physical Exam General General appearance: obtunded and cachectic Comment: Unresponsive to any stimuli, bradypneic, cool to the touch and mottled Head Head exam: atraumatic and normocephalic Eye Eye exam: Present other (Eyes dry, no corneal reflex, left pupil 6 mm, right pupil 4 mm, fixed); Absent PERRL or EOMI ENT ENT exam: Present mucous membranes dry Neck Neck exam: Present normal inspection Chest Chest inspection: Present symmetric chest wall rise Respiratory Respiratory exam: Present normal lung sounds bilaterally and respiratory distress (Bradypnea, hypoxia, requiring bagging for respiratory support); Absent wheezes or stridor Cardiovascular Cardiovascular exam: Present regular rate and normal rhythm Abdominal Exam Abdominal exam: Present soft; Absent distention or tenderness Extremities Exam Extremities exam: Present full ROM Neurological Exam Neurological exam: Present other (GCS 3) Psychiatric Psychiatric exam: Present normal affect and normal mood Skin Skin exam: Present warm and dry Medical Decision Making Medical Records Medical records reviewed: Yes I reviewed the patient's medical records. Screening: Per USPSTF and CDC recommendations, given the prevalence of disease in our region, it is our hospital?s policy to screen for HIV and viral Hepatitis for all patients aged 18 and over and those with ongoing risk factors. MR Comment: I reviewed discharge summary from 10/13/24 from the hospitalist service. Patient had been admitted with encephalopathy but showed signs of improvement with IV fluids and rewarming. She had been discharged positive for a strain of coronavirus. Plan was for comfort care only. Felix Inquiry Pt receiving controlled substance: No Vital Signs: 10/14/24 01:51 10/14/24 02:04 10/14/24 02:08 Temperature 97.7 F 100 F H Temperature Source Temporal Artery Scan Pulse Rate 69 95 H 97 H Pulse Rate [Right Femoral] Respiratory Rate 0 L 12 10 L Blood Pressure 68/41 L 107/93 L 107/93 L Blood Pressure [Right Arm] Blood Pressure Mean [Right Arm] Blood Pressure Source [Right Arm] Blood Pressure Position Supine 02 Sat by Pulse Oximetry 82 L 100 Oxygen Delivery Method Nasal Cannula Ambu-Bag Ambu-Bag 10/14/24 02:12 10/14/24 02:21 10/14/24 02:40 Temperature 97.7 F 96.6 F L Temperature Source Temporal Artery Scan Pulse Rate 105 H 118 H Pulse Rate [Right Femoral] 69 Respiratory Rate 15 2 L 12 Blood Pressure 101/82 L Blood Pressure [Right Arm] 68/41 L Blood Pressure Mean [Right Arm] 50 Blood Pressure Source [Right Arm] Automatic Cuff Blood Pressure Position 02 Sat by Pulse Oximetry 100 82 L 99 Oxygen Delivery Method Non-Rebreather Ambu-Bag 10/14/24 02:43 10/14/24 02:45 10/14/24 03:02 Temperature 96.4 F L 96.6 F L Temperature Source Core Pulse Rate 124 H 126 H Pulse Rate [Right Femoral] Respiratory Rate 10 L 13 8 L Blood Pressure 125/86 Blood Pressure [Right Arm] Blood Pressure Mean [Right Arm] Blood Pressure Source [Right Arm] Blood Pressure Position Supine 02 Sat by Pulse Oximetry 99 Oxygen Delivery Method Ambu-Bag Non-Rebreather Lab Data Lab Results 10/14/24 02:11: WBC 10.2, RBC 3.86 L, Hgb 11.0 L, Hct 33.8 L, MCV 87.6, MCH 28.5, MCHC 32.5, RDW 16.8, Plt Count 299, MPV 8.9, Neut % (Auto) 78.2, Lymph % (Auto) 13.1, [place] % (Auto) 6.1, Eos % (Auto) 0.1, Baso % (Auto) 0.7, Neut # (Auto) 8.0 H, Lymph # (Auto) 1.3, [place] # (Auto) 0.6, Eos # (Auto) 0.0, Baso # (Auto) 0.1, Sodium 140, Potassium 5.1, Chloride 106, Carbon Dioxide 30, Anion Gap 9.1, BUN 60 H, Creatinine 1.20 H, Estimated Creat Clear 34, Estimated GFR 47 L, Est GFR ( Amer) 57 L, Glucose 274 H, Lactate 1.0, Calcium 7.4 L, Total Bilirubin 0.8, AST 1566 H*, ALT 596 H*, Alkaline Phosphatase 247 H, Troponin I 1.09 H, Total Protein 5.2 L, Albumin 2.6 L, Globulin 2.6, Albumin/Globulin Ratio 1.0 L 10/14/24 02:26: Urine Color Yellow, Urine Appearance Clear, Urine pH 7.0, Ur Specific [place] 1.020, Urine Protein Negative, Urine Glucose (UA) Negative, Urine Ketones Negative, Urine Blood Negative, Urine Nitrate Negative, Urine Bilirubin Negative, Urine Urobilinogen 0.2, Ur Leukocyte Esterase Negative, Urine WBC 3-5, Ur Squamous Epith Cells 3-5, Amorphous Sediment 1+, Urine Bacteria Trace 10/14/24 02:33: VBG pH 7.15 L, VBG pCO2 78.5 H, VBG pO2 107.3 H, VBG HCO3 26.7, VBG Total CO2 29.1 H, VBG O2 Saturation 95.4 H, VBG Base Excess -2.2, VBG Lactic Acid 1.0 10/14/24 02:11 10/14/24 02:11 Orders (Tests/Meds): ED MEDICATIONS Generic Name Dose Route Start Last Admin Trade Name Freq PRN Reason Stop Dose Admin Sodium Chloride 1,000 mls @ 50 mls/hr 10/14/24 03:15 Sod Chlor 0.9% 1000ml Bag IV 11/13/24 03:14 .Q20H MICHELA Morphine Sulfate 2 mg 10/14/24 03:04 Morphine 2mg/Ml Syringe IV 11/13/24 03:03 Q2HP PRN Severe Pain (7-10) Sodium Chloride 10 ml 10/14/24 03:04 Sodium Chloride 0.9% 10ml Flush Syringe IV 11/13/24 03:03 NEEDED PRN Maintain IV Site Discontinued Medications Generic Name Dose Route Start Last Admin Trade Name Freq PRN Reason Stop Dose Admin Glycopyrrolate 0.4 mg 10/14/24 02:47 10/14/24 02:55 Glycopyrrolate 0.2 Mg/Ml 5ml Mdv IV 10/14/24 02:48 0.4 mg ONCE ONE Administration Morphine Sulfate 2 mg 10/14/24 02:47 10/14/24 02:52 Morphine 2mg/Ml Syringe IV 10/14/24 02:48 2 mg ONCE ONE Administration ORDERS Category Date Time Status CXR --portable [XR chest portable] Stat Exams 10/14/24 02:22 Completed Complete Blood Count Auto Diff Stat Lab 10/14/24 02:11 Completed Comprehensive Metabolic Panel Stat Lab 10/14/24 02:11 Completed Lactic Acid Stat Lab 10/14/24 02:11 Completed Troponin I Q3H Lab 10/14/24 05:30 Ordered Troponin I Q3H Lab 10/14/24 08:30 Ordered Troponin I Stat Lab 10/14/24 02:11 Completed Urinalysis and Microscopic Stat Lab 10/14/24 02:26 Completed VBG [Venous Blood Gas] Stat RT 10/14/24 02:33 Completed Medical Decision Narrative: In summary, this 54-year-old female with comorbidities described in the HPI presents to the emergency department today with altered mental status, unresponsiveness, mottled skin. On initial evaluation patient is obtunded, agonal breathing, hypotensive, initially bradycardic, mottled, patient had bradypnea with hypoxia. She is DNR/DNI so she was not intubated but she was bagged. [id number] glucose read low once IV access was established she received an amp of D50. She was also receiving IV fluids. IO placed for additional access in the right tibia. I placed an ultrasound-guided IV in the right upper extremity. I performed [id number] bedside ultrasound, I was not able to visualize the heart and any cardiac windows, did not appreciate pneumothorax, patient had normal-appearing aorta and IVC on abdominal ultrasound. Differential diagnosis includes but is not limited to intracranial bleed, PE, SC, hypoglycemia, other metabolic insult, pneumonia, hypercarbia, electrolyte abnormality, kidney dysfunction, liver dysfunction, among others. Though patient was DNR/DNI, I was not able to get a hold of the son myself to discuss what he would or would not want despite attempting to call multiple times by phone. Therefore initial labs were ordered as well as CT head and CTA PE. ECG personally interpreted demonstrate sinus tachycardia, rate 100, normal axis, normal QTc, no STEMI though patient has low voltage throughout which complicates interpretation. After receiving D50, patient's blood glucose improved and she did have slight improvement in her mental status, her GCS was now 4 and she was breathing independently with a respiratory rate of 10-15. She is on a nonrebreather mask. Chest x-ray personally interpreted at bedside demonstrates mass versus consolidation in the right midlung, no obvious lobar infiltrate or pleural effusion, see radiology read for full interpretation. Family presented to bedside prior to CT imaging. They stated they do not want the patient to have any scans. They want the patient to be comfort care only, they are okay with IV fluids. Son stated that they had left the senior living around 11 PM and patient had not lengthened multiple hours at that time already. He stated he suspected she was dying but when the senior living called, the reason he had her brought to the hospital is that he said he did not want her to [facility]. Son and family at bedside would like to pursue comfort care only. They are okay with morphine and glycopyrrolate being administered to help with air hunger, pain, secretions at this time. I believe this is reasonable. I canceled the CT scans. Labs had already been resulting which demonstrate no leukocytosis, anemia with hemoglobin 11, VBG with pH 7.15, hypercarbia, normal lactic on VBG, patient does have prerenal azotemia with STELLA and elevated creatinine as well as significant liver injury and troponin elevation. UA negative for findings of infection. Recheck blood glucose hypoglycemic. I discussed findings with the son and family at bedside. They do not want to address any of these findings at this time. They stated they want to only focus on comfort, they do not want to treat any other medical problems. They are okay with IV fluids and oxygen but no other intervention at this time. Given patient's advanced neurodegenerative disease and profound illness, I believe this is reasonable. I discussed this case with the hospitalist including family's wishes. Patient was accepted to the hospitalist service for comfort care. Critical Care Critical Care Time Critical Care Time: Yes Attestation: On 10/14/24, the high probability of a clinically significant, sudden or life threatening deterioration of the following system(s) (hemodynamic, respiratory) required my full and direct attention, intervention and personal management. The time I documented below is in addition to time spent performing reported procedures but includes the following listed in this critical care notation. Total Time Total Critical Care Time: 35
[2024-10-14 02:28] LABS: Basophils # 0.1 K/mm3 (0-0.2); Basophils % 0.7 % (0.1-2.0); Eosinophils % 0.1 % (0.1-12.0); Hematocrit 33.8 % (37.0-47.0); Lymphocytes # 1.3 K/mm3 (0.7-4.5); Lymphocytes % 13.1 % (10-50); Mean Corpuscular HGB Conc 32.5 g/dL (31.8-35.4); Mean Corpuscular Hemoglobin 28.5 pg (27.0-31.2); Mean Corpuscular Volume 87.6 fl (81-99); Mean Platelet Volume 8.9 fl (7.4-10.4); Monocytes # 0.6 K/mm3 (0.1-1.0); Monocytes % 6.1 % (1.7-9.3); Neutrophils % 78.2 % (37.0-80.0); Platelet Count 299 K/mm3 (142-424); Red Blood Count 3.86 M/mm3 (4.20-5.40); Red Cell Distribution Width 16.8 % (11.5-17.5); White Blood Count 10.2 K/mm3 (4.8-10.8)
[2024-10-14 02:29] LABS: VBG Base Excess -2.2 mmol/L (-2.4-2.3); VBG HCO3 26.7 mmol/L (23-30); VBG Oxygen Saturation 95.4 % (50-70); VBG PO2 107.3 mmol/L (28-40); VBG Total CO2 29.1 mmol/L (23-27)
[2024-10-14 02:30] LABS: Appearance,Urine CLEAR (Clear); Bilirubin,Urine Negative (Negative); Blood, Urine Negative (Negative); Color,Urine YELLOW (Yellow); Glucose,Urine (UA) Negative (Negative); Ketones,Urine Negative (Negative); Leukocyte Esterase,Urine Negative (Negative); Microscopic, Urine URINE MICROSCOPIC (MICROSCOPIC); Nitrate,Urine Negative (Negative); Protein,Urine Negative (Negative); Urobilinogen,Urine 0.2 EU/dl (0.2)
[2024-10-14 02:31] LABS: Albumin Level 2.6 g/dl (3.5-5.0); Chloride 106 mmol/L (98-107); Potassium 5.1 mmoL/L (3.5-5.1); Sodium 140 mmol/L (136-145)
[2024-10-14 02:34] LABS: Alanine Aminotransferase 596 U/L (12-78); Alkaline Phosphatase 247 U/L (38-126); Anion Gap 9.1 mEq/L (5-15); Bilirubin,Total 0.8 mg/dl (0.2-1.3); Blood Urea Nitrogen 60 mg/dl (7-17); Calcium 7.4 mg/dl (8.4-10.2); Carbon Dioxide 30 mmol/L (22.0-30.0); Globulin 2.6 g/dL (1.3-3.2); Glucose 274 mg/dl (74-100); Total Protein,Serum 5.2 g/dl (6.3-8.2)
--- NOTE | 2024-10-14 02:34 | PC.NURSE ---
0147 arrival to room 0148 3L O2; working on IV 0149 FAST exam 0151 82% on 3L 69 HR 68/41 BP 97.7 temp; 0 respirations- began bagging patient 0153 Glucose reads RR LOW ; still attempting IV 0200 IO to Right Tib; #20 placed LAC 0202 Dextrose 1 amp given 0204 95 HR 107/93 100% on BVM 0205 1 L LR started; EKG done 0207 BG 237 0208 Provider looking for US guided IV- #20 placed RAC; patient 100% with BVM 10 RR 97 HR 107/93 0211 labs sent 0212 abdominal US being done by provider 0213 NRB placed on patient; O2 sat 100% 0225 temp sensing FC placed; 100% on NRB
[2024-10-14 02:39] LABS: VBG PH 7.15 mmol/L (7.31-7.41)
[2024-10-14 02:40] LABS: Creatinine Clearance Estimated 34 mL/min (50-200); Estimated Glomerular Filt Rate 47 ml/min (>60); GFR (African American) 57 ML/MIN (>60)
[2024-10-14 02:40] LABS: VBG PCO2 78.5 mmol/L (35-51)
[2024-10-14 02:51] LABS: Troponin I 1.09 ng/ml (0.00-0.034)
[2024-10-14] MEDS: MORPHINE 2MG/ML SYRINGE 2 MG IV (02:52)
[2024-10-14 02:53] LABS: Amorphous Sediment,Urine 1+ /lpf; Bacteria,Urine Trace /lpf
[2024-10-14] MEDS: GLYCOPYRROLATE 0.2 MG/ML 0.4 MG IV (02:55)
--- NOTE | 2024-10-14 03:01 | PC.NURSE ---
Addendum entered by Dorita Braden RN 10/14/24 03:02: Meeks aware Original Note: FSBS 52. Family aware of pts fs being low, and would like to take a minute to decide if they would like us to treat it since pt is now comfort care.
[2024-10-14 03:04] LABS: Aspartate Amino Transferase 1566 U/L (14-36)
--- NOTE | 2024-10-14 03:07 | PC.NURSE ---
Report called to NICA Coles. Floor techs here to get patient.
--- NOTE | 2024-10-14 03:09 | PC.NURSE ---
Meeks at bedside speaking with pts son. Son reports he does not want us to treat pts hypoglycemia and would like for us to leave the NRB on her at this time, and IV fluids.
--- NOTE | 2024-10-14 03:20 | PC.NURSE ---
Patient arrived to floor via stretcher from ED at 03:17.
[2024-10-14] MEDS: 0.9 % SODIUM CHLORIDE 1000ML 1,000 ML 50 ML IV (03:55)
--- NOTE | 2024-10-14 04:10 | EXP.HP ---
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 She resides at [facility], where staff contacted EMS because they believed she had COVID and noted that she had been unresponsive for more than two hours. Upon EMS arrival, the patient was found to be unresponsive to any stimuli, severely hypotensive (systolic blood pressure approximately 48 mmHg), profoundly bradypneic (respiratory rate of 5), and with an undetectable SpO? reading. EMS also reported fixed pupils, mottling of the skin, and dependent blood pooling. She was placed on nasal cannula oxygen en route to the emergency department. Patient had originally been discharged from this facility in the a.m. after course of treatment for fluid resuscitation and hypothermia. She was diagnosed with coronavirus OC 4 3 not COVID-19 at previous visit. On arrival to the ED, the patient remained unresponsive, hypotensive, and bradypneic with agonal respirations and poor perfusion. Per her records and [facility] communication, she is DNR/DNI with no ACLS or chemical resuscitation. Consequently, she was not intubated but was assisted with unp-[id number]-fzki ventilation. A huqop-tg-yekf (POC) glucose measurement indicated a critically low value, and she received one amp of IV D50 with subsequent improvement in her blood glucose and a slight increase in her level of consciousness (GCS improved to 4). Her respiratory rate increased to 10?15 breaths per minute, and she was placed on a non-rebreather mask for oxygen support. An ECG demonstrated sinus tachycardia at a rate of about 100 bpm, low voltage complexes, and no evidence of ST-elevation myocardial infarction. A bedside chest X-ray suggested a possible mass or consolidation in the right mid-lung field; no large pleural effusions or obvious lobar infiltrates were identified. Laboratory testing revealed no leukocytosis, hemoglobin of 11.0 g/dL, prerenal azotemia with a BUN of 60 mg/dL, elevated creatinine at 1.20 mg/dL, significant liver injury (AST 1566 U/L, ALT 596 U/L), elevated troponin at 1.09 ng/mL, and a venous blood gas demonstrating a pH of 7.15 with hypercapnia (pCO? of 78.5 mmHg). Repeat POC glucose demonstrated ongoing hypoglycemia. Initially, a CT head and CTA pulmonary embolism protocol were ordered to evaluate for acute intracranial or cardiopulmonary pathology. However, the patient?s son and other family members arrived and expressed their wish for comfort measures only, declining all advanced diagnostic imaging and additional interventions beyond IV fluids and oxygen. They consented to the use of morphine and glycopyrrolate for comfort, control of air hunger, and secretion management. 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 All further diagnostic studies, including the planned CT scans, were canceled. I examined the patient in her hospital room and have continued receiving supportive measures (IV fluids, oxygen) with palliative medications as needed for symptom relief in accordance with the family?s wishes. Her son has been POA throughout her clinical course and is well aware of her prognosis including the presence of pronounced hypoglycemia. They expressed continued wish provide IV fluids oxygen and medications for comfort. I concur it is a reasonable request based on clinical prognosis. [facility] Disclaimer: The information contained in this section may have been updated after the patient was seen, as this information can be updated by other users. Medical History Allergic rhinitis Anxiety Asthma Need for comfort care End of life care Acute encephalopathy Bradycardia Elevated WBC count Colon cancer screening H/O thrombocytosis Abnormal breathing Dysphagia Depression Rochelle's disease Family History Other Allegany disease Social History (Updated 10/14/24 @ 04:22 by Mariangel Roman RN) Smoking Status: Unknown if ever smoked alcohol intake: never current occupational status: disabled Travel in the last 8 weeks: None housing: [facility] Have you tested positive for COVID-19: Yes Other Medical History Have you received the Flu Vaccine for this season: No Have you received the Pneumonia Vaccine: No Review of Systems Review of Systems Review of systems:: unable to obtain (Due to mental status) Meds Home Medications and Allergies Home Medications ?Medication ?Instructions ?Recorded ?Confirmed ?Type acetaminophen 500 mg capsule 500 mg PO Q4H PRN pain/fever 03/28/22 10/12/24 History albuterol sulfate 90 mcg/actuation 90 mcg inhalation Q4HP PRN 03/28/22 10/13/24 History breath activated powder Breathing Problems inhaler,sensor (Proair Digihaler) olanzapine 20 mg tablet (Zyprexa) 20 mg PO HS 11/07/22 10/12/24 History tetrabenazine 25 mg tablet 25 mg PO 1200,2100 04/15/23 10/13/24 History bisacodyl 10 mg rectal suppository 10 mg PA .every 3 days PRN 08/28/23 10/12/24 History Constipation multivitamin with minerals 1 tab PO DAILY 08/28/23 10/12/24 History simethicone 80 mg chewable tablet 80 mg PO TID 08/28/23 10/12/24 History (Gas Relief 80 (simethicone)) tetrabenazine 25 mg tablet 50 mg PO 0900 08/28/23 10/13/24 History cetirizine 10 mg tablet (All Day 10 mg PO DAILY 08/03/24 10/12/24 History Allergy (cetirizine)) lactulose 10 gram/15 mL oral 20 g PO HS 08/03/24 10/12/24 History solution ondansetron 4 mg disintegrating 4 mg PO AC 08/03/24 10/13/24 History tablet ondansetron 4 mg disintegrating 4 mg PO Q6HP PRN Nausea 08/03/24 10/13/24 History tablet psyllium husk 0.4 gram capsule 0.4 g PO DAILY 08/03/24 10/12/24 History (Reguloid (psyllium husk)) sennosides 8.6 mg-docusate sodium 2 tab-cap PO TID 08/03/24 10/12/24 History 50 mg tablet (Senexon-S) famotidine 20 mg tablet 20 mg PO BID 09/07/24 10/12/24 History aluminum hydrox-magnesium carb 95 30 ml PO BID PRN GI DISTRESS 10/12/24 10/12/24 History mg-358 mg/15 mL oral suspension (Gaviscon) amantadine HCl 100 mg capsule 200 mg PO BID 10/13/24 10/13/24 History citalopram 40 mg tablet 40 mg PO DAILY 10/13/24 10/13/24 History clonazepam 1 mg tablet (Klonopin) 1 mg PO TID 10/13/24 10/13/24 History haloperidol 0.5 mg tablet 1.5 mg PO TID 10/13/24 10/12/24 History New Prescriptions to Start Prescriptions: Allergies Allergy/AdvReac Type Severity Reaction Status Date / Time No Known Allergies Allergy Verified 10/12/24 11:36 Exam Data for Last 24 hours Vital signs and Labs for Last 24 Hours: Temp Pulse Resp BP Pulse Ox O2 Del Method O2 Flow Rate 96.6 F L 126 H 10 L 110/82 100 Non-Rebreather 15 10/14/24 03:02 10/14/24 03:46 10/14/24 03:46 10/14/24 03:46 10/14/24 03:46 10/14/24 03:46 10/14/24 03:46 Laboratory Results - last 24 hr 10/14/24 02:11: WBC 10.2, RBC 3.86 L, Hgb 11.0 L, Hct 33.8 L, MCV 87.6, MCH 28.5, MCHC 32.5, RDW 16.8, Plt Count 299, MPV 8.9, Neut % (Auto) 78.2, Lymph % (Auto) 13.1, Saline % (Auto) 6.1, Eos % (Auto) 0.1, Baso % (Auto) 0.7, Neut # (Auto) 8.0 H, Lymph # (Auto) 1.3, Saline # (Auto) 0.6, Eos # (Auto) 0.0, Baso # (Auto) 0.1, Sodium 140, Potassium 5.1, Chloride 106, Carbon Dioxide 30, Anion Gap 9.1, BUN 60 H, Creatinine 1.20 H, Estimated Creat Clear 34, Estimated GFR 47 L, Est GFR ( Amer) 57 L, Glucose 274 H, Lactate 1.0, Calcium 7.4 L, Total Bilirubin 0.8, AST 1566 H*, ALT 596 H*, Alkaline Phosphatase 247 H, Troponin I 1.09 H, Total Protein 5.2 L, Albumin 2.6 L, Globulin 2.6, Albumin/Globulin Ratio 1.0 L 10/14/24 02:26: Urine Color Yellow, Urine Appearance Clear, Urine pH 7.0, Ur Specific [place] 1.020, Urine Protein Negative, Urine Glucose (UA) Negative, Urine Ketones Negative, Urine Blood Negative, Urine Nitrate Negative, Urine Bilirubin Negative, Urine Urobilinogen 0.2, Ur Leukocyte Esterase Negative, Urine WBC 3-5, Ur Squamous Epith Cells 3-5, Amorphous Sediment 1+, Urine Bacteria Trace 10/14/24 02:33: VBG pH 7.15 L, VBG pCO2 78.5 H, VBG pO2 107.3 H, VBG HCO3 26.7, VBG Total CO2 29.1 H, VBG O2 Saturation 95.4 H, VBG Base Excess -2.2, VBG Lactic Acid 1.0 I & O for Last 24 hours: Intake & Output 10/11/24 10/12/24 10/13/24 10/14/24 23:59 23:59 23:59 23:59 Weight 38.238 kg Constitutional Constitutional: cachectic, chronically ill appearing and obtunded *Routine HEENT Exam Head: Present normocephalic Eye: Absent periorbital swelling ENT: Present mucous membranes dry Comments: Loss of periorbital fat *Routine Neck Exam Neck: Present supple; Absent lymphadenopathy *Routine Respiratory Exam Respiratory: Present diminished air movement; Absent respiratory distress, stridor, wheezes or crackles Comments: bradypneic *Routine Cardiovascular Exam Cardiovascular: Present bradycardia *Routine Abdominal Exam Abdominal: Present soft and normoactive bowel sounds; Absent tenderness *Routine Rectal Exam Rectal:: deferred *Routine Genitalia Exam Genitalia:: deferred *Routine Extremities Exam Extremities: Present cyanosis (fingertips cold and cyanotic); Absent clubbing or edema Comments: sarcopenia *Routine Skin Exam Skin: Present intact and warm; Absent rash *Routine Neurological Exam Neurological: Present altered mental status; Absent moving all extremities Comments: laying in position on right side in bed Assessment and Plan *Assessment and plan (1) Allegany's disease: Status: Acute Category: Medical Code(s): G10 - Allegany's disease (2) Acute encephalopathy: Status: Acute Category: Medical Code(s): G93.40 - Encephalopathy, unspecified (3) Bradycardia: Status: Acute Category: Medical Code(s): R00.1 - Bradycardia, unspecified (4) Hypothermia: Status: Acute Category: Medical Code(s): T68.XXXA - Hypothermia, initial encounter (5) Progressive neurologic decline: Status: Acute Category: Medical Code(s): R29.818 - Other symptoms and signs involving the nervous system (6) Severe protein-calorie malnutrition: Status: Acute Category: Medical Code(s): E43 - Unspecified severe protein-calorie malnutrition (7) Hypoglycemia: Status: Acute Category: Medical Code(s): E16.2 - Hypoglycemia, unspecified Plan 54-year-old female with progressing neurologic decline secondary to Allegany's disease. Presents with severe decline in responsiveness and hypoglycemia. Given the patient?s advanced neurodegenerative disease (Allegany's), hypotension, hypoglycemia, hypercapnia, and significant hepatic injury, the initial approach included rapid glucose correction (IV D50), IV fluids, and supportive oxygenation. Despite ordering further diagnostic imaging to rule out intracranial bleed and pulmonary embolism, her son who is POA arrived and indicated a preference for comfort measures only (in accordance with the patient?s DNR/DNI status). Therefore, all advanced imaging was canceled, and we focused on palliative management with morphine for pain/air hunger and glycopyrrolate for secretion control. This plan aligns with the family?s goals to provide symptomatic relief without escalating invasive interventions. DNR/DNI; Comfort care comfort feeds, regular diet no anti-coagulation in line with GOC (no needle sticks or labs) Rounded on patient after nurse practitioner. Personally examined and interviewed patient. Agree with exam findings and care plan as documented.
--- NOTE | 2024-10-14 04:24 | PC.NURSE ---
Ms Shayna Slade, an [facility] resident, was admitted this shift on behalf of the documented diagnosis: encephalopathy. She has a history of [place]'s disease. At this time, the patient is unresponsive. Patient is appearing to groan only (no speech) in response to stimuli, such as pain or turning by staff. Her eyes do not open to outside stimuli and pupils are fixed. GCS score 6 to 7 upon assessment. All four extremities are rigid and weak with abnormal flexion. She is immobile and totally dependent on staff. Patient's overall appearance is frail. Mottling is noted to all four extremities as well. A sacral dressing is in place due to reddening on her coccyx. Patient's overall skin temperature is cold to the touch; core temperature readings have also been low. Warm blankets were applied to the patient for comfort. Family is currently at bedside. Comfort care measures initiated. Patient's respirations are currently even and unlabored. Eyes remain closed. Upon auscultation of her lungs, expiratory rhonchi with diminished air movement and rattling could be heard. Bowel sounds were absent, and an elevated heart rate was also noted with auscultation. A nonrebreather mask is in place on 15 L oxygen flow. Normal saline is currently infusing at 50 mL/hr. Morphine ordered for pain/agonal breathing control. Patient has been repositioned in bed for comfort by staff. A Prajapati remains in place (with temperature sensor). Respirations were approximately 8 to 10 per minute, and blood pressures have been soft. At this time, the patient is resting supine in bed. Call light within reach. Courtesy cart at bedside. Contact/airborne precautions in place for COVID.
--- NOTE | 2024-10-14 06:51 | PC.NURSE ---
Lab called at 06:51 to report a critical troponin value of 1.70 for the patient. Saad GRIMALDO was paged at this time to inform him about the critical lab value.
--- NOTE | 2024-10-14 07:34 | PC.NURSE ---
Addendum entered by Mariangel Roman RN 10/14/24 07:40: A physical pulse (radial, carotid) was not detected as well. Original Note: Entry for 07:20: Patient's son came to the nurse's station and stated tearfully I think she's gone. He requested for staff members to assess the patient at the bedside. This RN (Tash Roman RN), Tash Braxton RN, Chantel Alvarez RN, and Zana Damon RN entered the room. I auscultated the patient; no lung sounds nor heart sounds could be detected. Respirations (fall and rise of chest) were not present. Dr Gonsalez was consulted to assess the patient at the bedside as well. Time of expiration was confirmed for 07:20 by Sunshine COOLEY.
--- NOTE | 2024-10-14 07:45 | EXP.DEATH.NO ---
Pronouncement Note Date and Time of Date of : 10/14/24 Time of : 07:20 PCOD Preliminary cause of : Septic shock Contributing Factors (1) Rochelle's disease: (2) Acute encephalopathy: (3) Bradycardia: (4) Hypothermia: (5) Progressive neurologic decline: (6) Severe protein-calorie malnutrition: (7) Hypoglycemia: Summary Additional details: 54-year-old female with progressing neurologic decline secondary to [place]'s disease. Presents with severe decline in responsiveness and hypoglycemia. Found to have multiorgan failure with elevated liver enzyme, elevated troponin concerning for myocardial injury, elevated creatinine concerning for kidney injury. Patient appears dehydrated on initial admission prior to readmission. Presented for first admission with shock. Showed improvement after fluids and warming. Repeat admission patient had acute neurologic change and labs concerning for multiorgan dysfunction. Given the patient?s advanced neurodegenerative disease ([place]'s), hypotension, hypoglycemia, hypercapnia, and significant hepatic injury, the initial approach included rapid glucose correction (IV D50), IV fluids, and supportive oxygenation. Despite ordering further diagnostic imaging to rule out intracranial bleed and pulmonary embolism, her son who is POA arrived and indicated a preference for comfort measures only (in accordance with the patient?s DNR/DNI status). Therefore, all advanced imaging was canceled, and we focused on palliative management with morphine for pain/air hunger and glycopyrrolate for secretion control. This plan aligns with the family?s goals to provide symptomatic relief without escalating invasive interventions. Within hours of admission patient passed peacefully with family at bedside. Review of patient's presentation showed that she was hypothermic, tachycardic and positive for coronavirus on first admission when she was unresponsive. She became more responsive after fluids and discharged back to her nursing facility. Returned back to the ER after an abrupt change in mentation. At that time more extensive labs were performed in the ER showing respiratory acidosis with hypercapnia, shock liver with elevated liver enzymes, NSTEMI with elevated troponin, kidney injury, and concern for chest mass on chest x-ray. Frankly encephalopathic. Did not regain consciousness. Consistent with septic shock with multiorgan failure. Additional Data Confirmation of : no pulse, no respirations, no heart sounds and pupils fixed and dilated Family: at bedside Attending/PCP notified?: Yes Attending physician: Jorge Gonsalez MD Was code activated?: No Autopsy should be considered if:: Unknown or unanticipated medical complications Cause is not known with certainty on clinical grounds Would allay concerns of the public/family regarding Unexplained/unexpected apparently natural and not subject to a forensic medical jurisdiction DOA Within 24 hours of admission Sustained or apparently sustained injury while in the hospital Result of high risk, infectious and contagious disease Obstetric and pediatric arising from environmental or occupational hazard Unexplained/unexpected from dental, medical, or surgical diagnostic procedures and/or therapies Would disclose a known or suspected illness which also may have a bearing on survivors or recipients of transplanted organs Autopsy requested?: No Inappropriate situation elevator examiner and adjuster notified?: Yes Organ bank notified?: Yes Advance directives: Yes
--- NOTE | 2024-10-14 08:00 | PC.NURSE ---
notified YEHUDA. pt deferred. contact information Eloina Mojica .
--- NOTE | 2024-10-14 10:18 | PC.NURSE ---
gave the family something to drink, no other needs at this time. still waiting to do post mortum care and call home
--- NOTE | 2024-10-14 14:06 | PC.NURSE ---
Pt left floor with [facility] @[id number]
== END 2024-10-14 13:45 | disposition expired ==
LOC: ER 02:53 → 2ND 02:56
PROVIDERS: Admitting Provider Internal Medicine Adolescent Medicine; Emergency Provider Emergency Medicine; PCP Family Medicine; Visit Provider Internal Medicine Adolescent Medicine
DX: G10 Huntington's disease (principal); G93.40 Encephalopathy, unspecified; U07.1 COVID-19; Z68.1 Body mass index [BMI] 19.9 or less, adult; E16.2 Hypoglycemia, unspecified; R09.02 Hypoxemia; I95.9 Hypotension, unspecified; R06.89 Other abnormalities of breathing; E43 Unspecified severe protein-calorie malnutrition; Z79.51 Long term (current) use of inhaled steroids; Z79.899 Other long term (current) drug therapy; Z74.1 Need for assistance with personal care
CPT/HCPCS: 36415; 51702; 71045; 80053; 81001; 82803; 83605; 84484; 85025; 93005; 99291; G0378; J1595; J2270; J7030